=== PATIENT | female | born 1955 | race Caucasian/White ===

== ENCOUNTER 2020-01-31 16:14 | Outpatient (CLI) | payer OTHER, SELFPAY | END 2020-01-31 16:15 | disposition home or self-care (01) | LOC: ANHLAB 16:17 | PROVIDERS: PCP Family Medicine; Visit Provider Urology | DX: Z01.812 Encounter for preprocedural laboratory examination (principal) | CPT/HCPCS: 87086 ==

== ENCOUNTER 2020-02-01 00:27 | Outpatient (CLI) | payer OTHER, SELFPAY ==
[2020-02-01 18:40] LABS: SARS-CoV-2 RNA PCR Negative
== END 2020-02-01 00:28 | disposition home or self-care (01) ==
LOC: ANHCOVIDDT 00:27
PROVIDERS: PCP Family Medicine; Visit Provider Urology
DX: Z01.818 Encounter for other preprocedural examination (principal); Z11.59 Encounter for screening for other viral diseases
CPT/HCPCS: 87635; C9803; U0003

== ENCOUNTER 2020-02-04 01:19 | Day surgery (SDC) | payer OTHER, SELFPAY ==
[2020-01-28 08:54] VITALS: BMI 28.0
[2020-02-04] VITALS (8 sets, daily range): BP systolic 113–134; BP diastolic 55–73; PULSE 58–79; RESP 12–18; TEMP 36.1–36.2; O2SAT 100
[2020-02-04] MEDS: LACTATED RINGERS 1,000 ML 30 ML IV CONT ×2 (06:40→08:19)
--- NOTE | 2020-02-04 06:52 | P.PNAN_ITS ---
Anes - Initial Pre Proc Eval Procedure: Operation Date: 02/04/20 07:30 Proposed Procedures p Cystocele Repair - Bryson Contreras MD Date/Time: 02/04/20 06:52 Surgeon: Bryson Contreras MD Pre Op Diagnosis: Cystocele Patient Data Age: 64 Gender: F Height: 1.75 m Weight: 87.45 kg Last Vital Signs Temp 36.2 C L 02/04/20 06:25 Pulse 79 02/04/20 06:25 Resp 18 02/04/20 06:25 BP 134/64 02/04/20 06:25 Pulse Ox 100 02/04/20 06:25 Allergies Allergy/AdvReac Type Severity Reaction Status Date / Time morphine AdvReac Unknown Nausea and Verified 02/04/20 06:50 Vomiting Home Medications Medication Instructions Recorded Confirmed Type No Home Medications 01/28/20 02/04/20 History Patient hx anesthesia problems: post op nausea/vomiting Family hx anesthesia problems: none [facility] Past Medical History Medical History (Updated 02/04/20 @ 06:52 by Sina Reich MD) Arthritis Family History Family History (Updated 05/12/14 @ 07:13 by DOCTOR UNKNOWN) Father Hypertension Family history of coronary artery disease Family history of congestive heart failure Other Family history of pancreatic cancer Social History Social History Smoking status: Never smoker Second hand tobacco smoke exposure: No Alcohol intake: current Anes - Eval Final PreProcedure Day of Procedure 02/04/20 06:52 Patient weight: overweight Heart: regular rate and rhythm Lungs: clear to auscultation and normal air movement Airway: Mallampati scale class II Neurological: alert and oriented Last oral intake: >/= 8 hours ASA classification: II Emergent: no Anesthetic plan: proceed Anesthesia type and monitoring: general LMA Informed Consent: The patient's anesthetic plan and its attendant risks and benefits were discussed with the patient/family/POA. Questions were solicited and answers provided to the satisfaction of the patient/family/POA.
--- NOTE | 2020-02-04 07:29 | WPDHPUPDATE1 ---
History and Physical Update Update Date/Time: 02/04/20 07:29 History and Physical has been reviewed, including an updated exam of the patient. There are NO changes in the patient's condition. Risks, benefits, and alternatives have been discussed and questions answered. Patient agrees to proceed with procedure.
[2020-02-04] MEDS: ceFAZolin 2 GM/D5W 50 ML 2 GM/50 ML BAG IVPB (07:33)
[2020-02-04] MEDS: BUPIVACAINE/EPINEPHRINE 0.25% 50 ML VIAL 10 ML INFILTRATE (07:59)
--- NOTE | 2020-02-04 08:17 | PM.PROC ---
Procedure Note - Detailed Date of procedure: 02/04/20 Pre-op diagnosis: Cystocele Cystocele Post-op diagnosis: same Procedure performed: Cystocele repair/anterior colporrhaphy Description of procedure: She understood the risks of bleeding, infection, damage to surrounding organs, dyspareunia, postoperative stress incontinence, and recurrence of prolapse. She agrees to proceed. She has correctly identified and informed consent was obtained and she was brought to the operating room. She was given general anesthesia. She was placed in the dorsal thigh position. She was prepped and draped in sterile fashion. Given appropriate perioperative antibiotics. A time-out was performed. I placed a Weaver catheter. I placed a [place] retractor. I infiltrated the subcutaneous tissues of the anterior vaginal wall with local mixed with injectable saline. I made a midline vaginal incision. I dissected out laterally dissecting the mucosa off the underlying fascial structures. I dissected towards the vaginal apex as well. I then performed a standard cystocele repair with plicating sutures of 0 Vicryl. This reduced the cystocele. I then trimmed excess vaginal mucosa. I closed the vaginal closed with a running 2 0 Vicryl suture. There was excellent hemostasis. I then performed cystoscopy. The bladder is examined. There is no surgical artifact or injury. Both ureteral orifices were seen to excrete clear yellow urine. At the conclusion she was awakened and transferred to the PACU in stable condition. Sponge count is correct x2. Implants: None Anesthesia: RIGOA Surgeon: Bryson Contreras MD Drains: No Packing: No Pathology: none sent Complications: No immediate complications Condition: stable Disposition: PACU
== END 2020-02-04 10:10 | disposition home or self-care (01) ==
PROVIDERS: PCP Family Medicine; Visit Provider Urology
PROC: (CPT 57240; principal; 2020-02-04 07:30)
DX: N81.10 Cystocele, unspecified (principal)
CPT/HCPCS: 57240; A9270; J0690; J2250; J2405; J2704; J3010; J7030; J7120

== ENCOUNTER 2020-10-18 14:23 | Outpatient (CLI) | payer MEDICARE, OTHER, SELFPAY ==
--- NOTE | ~2020-10-18 | XR_ITS ---
EXAMINATION: XR chest 2V DATE: 10/18/2020 16:01 INDICATION: Palpitations. TECHNIQUE: Frontal and lateral views of the chest were obtained. COMPARISON: Chest 2 views 03/20/2012 FINDINGS: There is mild atelectasis at left lung base. No pleural effusion or pneumothorax. The heart size is normal. Surgical clips in the right upper quadrant are likely from cholecystectomy. IMPRESSION: 1. Mild atelectasis at left lung base. Reviewed, dictated and finalized at location A. ETIC INSTRUCTOR
--- NOTE | 2020-10-18 14:50 | ECG_ITS ---
Measurements Intervals [place] Rate: 73 P: 62 CA: 182 QRS: 50 QRSD: 89 T: 57 QT: 369 QTc: 407 Interpretive Statements SINUS RHYTHM CANNOT RULE OUT SEPTAL INFARCT, AGE INDETERMINATE ABNORMAL ECG Electronically Signed On 10-18-2020 16:06:52 CODE CLERK by Jason Parra D.O.
[2020-10-18 14:59] LABS: Basophils Absolute Auto 0.1 K/mm3 (0.0-0.1); Basophils Percent Auto 0.8 % (0.2-1.2); Eosinophils Absolute Auto 0.3 K/mm3 (0-0.3); Hematocrit 39.1 % (37.0-47.0); Hemoglobin 12.4 g/dL (12.0-15.0); Immature Granulocyte Absolute 0.01 K/mm3 (0.00-0.031); Immature Granulocyte Percent A 0.1 % (0-0.5); Lymphocytes Absolute Auto 2.34 K/mm3 (0.9-3.2); Lymphocytes Percent Auto 27.6 % (18.3-44.2); Mean Corpuscular HGB Conc 31.7 g/dl (32-36); Mean Corpuscular Hemoglobin 27.7 pg (26-34); Mean Corpuscular Volume 87.3 fl (80-100); Mean Platelet Volume 9.1 fl (7.4-10.4); Monocytes Absolute Auto 0.7 K/mm3 (0.1-0.6); Monocytes Percent Auto 7.7 % (2.6-8.5); Neutrophils Absolute Auto 5.2 K/mm3 (1.3-6.7); Neutrophils Percent Auto 60.8 % (45.5-73.1); Platelet Count Result 331 k/mm3 (150-375); Red Blood Count 4.48 M/mm3 (4.2-5.4); Red Cell Distribution Width 13.1 % (11.5-14.5); White Blood Count 8.5 K/mm3 (4.5-10.0)
[2020-10-18 15:25] LABS: Anion Gap 2 mmol/L (8-16); Blood Urea Nitrogen 16 mg/dL (7-17); Calcium 9.5 mg/dL (8.4-10.2); Carbon Dioxide 34 mmol/L (22-30); Chloride 103 mmol/L (98-107); Estimated Glomerular Filt Rate > 60; Glucose 84 mg/dL (65-105); Potassium 4.4 mmol/L (3.4-5.0); Sodium 139 mmol/L (137-145)
--- NOTE | 2020-10-20 16:15 | WPDHOLTEREM ---
Holter/Event Monitor Holter/Event Monitor Date of procedure: 10/18/20 Procedure Type: 24 hour holter monitor Indications: Palpitations Conclusion: 1. 24 hour holter monitor on 10/18/20. 2. Underlying rhythm is sinus rhythm. HR range 56-111 bpm; average HR 77 bpm. 3. There are 46 premature supraventricular complexes, 2 supraventricular couplets and 1 supraventricular triplet. No supraventricular tachycardia. 4. There are 755 premature ventricular complexes. No ventricular tachycardia. 5. No sinoatrial or atrioventricular blocks. No significant pauses greater than 2 seconds. 6. Patient reports symptoms of palpitations, shortness of breath, and strong heart beat which demonstrate sinus rhythm, HR range 74-90 bpm and 3 isolated PVC's.
== END 2020-10-18 14:24 | disposition home or self-care (01) ==
PROVIDERS: PCP Family Medicine; Visit Provider Nurse Practitioner Family
DX: R00.2 Palpitations (principal); R06.02 Shortness of breath; R25.2 Cramp and spasm; R94.31 Abnormal electrocardiogram [ECG] [EKG]
CPT/HCPCS: 36415; 71046; 80048; 82607; 83735; 84443; 85025; 93005; 93225; 93226

== ENCOUNTER 2020-11-16 07:42 | Outpatient (CLI) | payer MEDICARE, OTHER, SELFPAY ==
--- NOTE | 2020-11-16 07:46 | EST_ITS ---
Patient Info Name: Bonita Chin Age: 65 years : 1955 Gender: Female Ht: 69 in Wt: 190 lbs BSA: 2.07 m2 Exam Date: 11/16/2020 8:58 AM Exam Location: [facility] Stress Patient Status: Outpatient Admit Date: 11/16/2020 Staff Ordering Physician: Yvette Waterman NP Attending Provider: Yvette Waterman NP Exercise Technologist: Floridalma Frausto RDCS Exercise Physician: Katie Shah MD Exam Type: CA stress test treadmill Study Info A treadmill exercise stress test was performed. Summary 1. Abnormal exercise stress test suggestive of ischemia. 2. Hypertensive blood pressure response. Recommendations * Recommend cardiac catheterization to rule out CAD. Protocol: [facility] Stress ECG Details Stage: REST Duration (min): 2 min : 0 sec Speed (mph): 0.0 Grade (%): 0 HR (bpm): 66 SBP (mmHg): 145 DBP (mmHg): 83 METS: --- Stage: REST Duration (min): 7 min : 59 sec Speed (mph): 0.0 Grade (%): 0 HR (bpm): 72 SBP (mmHg): 145 DBP (mmHg): 83 METS: --- Stage: STAGE 1 Duration (min): 1 min : 0 sec Speed (mph): 1.7 Grade (%): 10 HR (bpm): 101 SBP (mmHg): 145 DBP (mmHg): 83 METS: --- Stage: STAGE 1 Duration (min): 2 min : 0 sec Speed (mph): 1.7 Grade (%): 10 HR (bpm): 112 SBP (mmHg): 145 DBP (mmHg): 83 METS: --- Stage: STAGE 1 Duration (min): 3 min : 0 sec Speed (mph): 1.7 Grade (%): 10 HR (bpm): 119 SBP (mmHg): 209 DBP (mmHg): 71 METS: --- Stage: STAGE 2 Duration (min): 1 min : 0 sec Speed (mph): 2.5 Grade (%): 12 HR (bpm): 133 SBP (mmHg): 209 DBP (mmHg): 71 METS: --- Stage: STAGE 2 Duration (min): 2 min : 0 sec Speed (mph): 2.5 Grade (%): 12 HR (bpm): 144 SBP (mmHg): 218 DBP (mmHg): 79 METS: --- Stage: STAGE 2 Duration (min): 3 min : 0 sec Speed (mph): 2.5 Grade (%): 12 HR (bpm): 148 SBP (mmHg): 218 DBP (mmHg): 79 METS: --- Stage: STAGE 3 Duration (min): 1 min : 0 sec Speed (mph): 3.4 Grade (%): 14 HR (bpm): 158 SBP (mmHg): 218 DBP (mmHg): 82 METS: --- Stage: STAGE 3 Duration (min): 1 min : 20 sec Speed (mph): 3.4 Grade (%): 14 HR (bpm): 160 SBP (mmHg): 218 DBP (mmHg): 82 METS: --- Stage: RECOVERY Duration (min): 0 min : 39 sec Speed (mph): 0.0 Grade (%): 0 HR (bpm): 153 SBP (mmHg): 218 DBP (mmHg): 82 METS: --- Stage: RECOVERY Duration (min): 1 min : 39 sec Speed (mph): 0.0 Grade (%): 0 HR (bpm): 130 SBP (mmHg): 218 DBP (mmHg): 82 METS: --- Stage: RECOVERY Duration (min): 2 min : 39 sec Speed (mph): 0.0 Grade (%): 0 HR (bpm): 116 SBP (mmHg): 218 DBP (mmHg): 82 METS: --- Stage: RECOVERY Duration (min): 3 min : 39 sec Speed
--- NOTE | 2020-11-16 07:46 | ECHO_ITS ---
Patient Info Name: Bonita Chin Age: 65 years : 1955 Gender: Female Ht: 69 in Wt: 190 lbs BSA: 2.07 m2 HR: 74 bpm BP: 137 / 71 mmHg Heart Rhythm: Sinus Rhythm Exam Date: 11/16/2020 8:06 AM Exam Location: [facility] Patient Status: Outpatient Admit Date: 11/16/2020 Staff Ordering Physician: Yvette Waterman NP Corporate Travel Counselor: Grace Lilly RDCS Attending Provider: Yvette Waterman NP Referring Physician: Guevara ECHEVARRIA; Exam Type: CA echo doppler color flow Study Info Indications R06.02 - Shortness of breath R00.2 - Palpitations R94.31 - Abnormal electrocardiogram ECG EKG Complete two-dimensional, color flow and Doppler transthoracic echocardiogram is performed. Summary 1. Complete two-dimensional, color flow and Doppler transthoracic echocardiogram is performed. 2. Left ventricular systolic function is normal, estimated at 60-65%. 3. There is mildly increased left ventricular wall thickness. 4. The left ventricular diastolic function is grade I diastolic dysfunction. 5. There is mild aortic valve sclerosis. 6. There is trace aortic valve regurgitation. 7. There is trace mitral valve regurgitation. 8. There is mild tricuspid valve regurgitation. 9. No pulmonary hypertension, estimated pulmonary arterial systolic pressure is 27 mmHg. Left Ventricle Left ventricular chamber dimension is normal. Left ventricular systolic function is normal, estimated at 60-65%. There is mildly increased left ventricular wall thickness. Left ventricular septal wall motion is normal. The left ventricular diastolic function is grade I diastolic dysfunction. Right Ventricle Right ventricular chamber dimension is normal. Right ventricular systolic function is normal. Left Atria Left atrial chamber dimension is normal. Right Atria Right atrial chamber dimension is normal. Atrial Septum Intact interatrial septum visualized by color flow imaging. Aortic Valve The aortic valve is trileaflet. There is mild aortic valve sclerosis. There is no aortic valve stenosis. There is trace aortic valve regurgitation. Pulmonic Valve The pulmonic valve is normal. There is no pulmonic valve stenosis. There is mild pulmonic regurgitation. Mitral Valve The mitral valve has normal leaflets. There is no mitral valve stenosis. There is trace mitral valve regurgitation. Tricuspid Valve The tricuspid valve leaflets are normal. There is no significant tricuspid valve stenosis. There is mild tricuspid valve regurgitation. No pulmonary hypertension, estimated pulmonary arterial systolic pressure is 27 mmHg. Pericardium/Pleural The pericardium appears normal. There is no pericardial effusion. Inferior Vena Cava Normal inferior vena cava with <50% collapse upon inspiration consistent with elevated right atrial pressure, 10 mmHg. Aorta The aortic root size at the sinus of Valsalva is normal. The prox ascending aorta size is normal. Left Ventricular Outflow Tract Name Value Normal LVOT 2D LVOT Diameter 2.0 cm LVOT Doppler LVOT Peak Velocity 109 cm/s
== END 2020-11-16 07:43 | disposition home or self-care (01) ==
PROVIDERS: PCP Family Medicine; Visit Provider Nurse Practitioner Family
DX: R00.2 Palpitations (principal); R94.31 Abnormal electrocardiogram [ECG] [EKG]; R06.02 Shortness of breath
CPT/HCPCS: 93017; 93306

== ENCOUNTER → 2020-11-20 00:25 | Outpatient (CLI) | payer MEDICARE, OTHER, SELFPAY ==
[2020-11-20 18:03] LABS: SARS-CoV-2 RNA PCR Negative
== END ==
PROVIDERS: PCP Family Medicine; Visit Provider Internal Medicine Cardiovascular Disease
DX: Z01.812 Encounter for preprocedural laboratory examination (principal); Z20.822 Contact with and (suspected) exposure to COVID-19
CPT/HCPCS: C9803; U0003; U0005

== ENCOUNTER 2020-11-23 01:23 | Day surgery (SDC) | payer MEDICARE, OTHER, SELFPAY ==
[2020-11-22 13:57] VITALS: BMI 28.0
[2020-11-23] VITALS (8 sets, daily range): BP systolic 122–139; BP diastolic 60–81; PULSE 60–80; RESP 10–19; TEMP 37.1; O2SAT 98–100; BMI 28.7
[2020-11-23 10:59] LABS: Basophils Absolute Auto 0.1 K/mm3 (0.0-0.1); Basophils Percent Auto 0.9 % (0.2-1.2); Eosinophils Absolute Auto 0.2 K/mm3 (0-0.3); Eosinophils Percent Auto 2.5 % (0-4.4); Hematocrit 41.8 % (37.0-47.0); Hemoglobin 13.6 g/dL (12.0-15.0); Immature Granulocyte Absolute 0.02 K/mm3 (0.00-0.031); Immature Granulocyte Percent A 0.2 % (0-0.5); Lymphocytes Absolute Auto 1.72 K/mm3 (0.9-3.2); Lymphocytes Percent Auto 21.3 % (18.3-44.2); Mean Corpuscular HGB Conc 32.5 g/dl (32-36); Mean Corpuscular Hemoglobin 27.8 pg (26-34); Mean Corpuscular Volume 85.5 fl (80-100); Mean Platelet Volume 9.4 fl (7.4-10.4); Monocytes Absolute Auto 0.5 K/mm3 (0.1-0.6); Monocytes Percent Auto 5.9 % (2.6-8.5); Neutrophils Absolute Auto 5.6 K/mm3 (1.3-6.7); Neutrophils Percent Auto 69.2 % (45.5-73.1); Platelet Count Result 329 k/mm3 (150-375); Red Blood Count 4.89 M/mm3 (4.2-5.4); Red Cell Distribution Width 13.2 % (11.5-14.5); White Blood Count 8.1 K/mm3 (4.5-10.0)
[2020-11-23 11:10] LABS: INR 0.9
[2020-11-23 11:13] LABS: Anion Gap 7 mmol/L (8-16); Blood Urea Nitrogen 14 mg/dL (7-17); Calcium 9.4 mg/dL (8.4-10.2); Carbon Dioxide 28 mmol/L (22-30); Chloride 104 mmol/L (98-107); Estimated CRCL calculation 82 ml/min; Estimated Glomerular Filt Rate > 60; Glucose 87 mg/dL (65-105); Potassium 4.1 mmol/L (3.4-5.0); Sodium 139 mmol/L (137-145)
--- NOTE | 2020-11-23 13:11 | PM.CNCAR ---
Assessment and Plan Assessment and plan (1) Abnormal stress test: Code(s): R94.39 - Abnormal result of other cardiovascular function study Status: Acute Assessment and Plan: patient underwent stress testing was markedly abnormal with diffuse ST depressions throughout stress test. For that reason we decided to proceed with cardiac catheterization. (2) Palpitations: Code(s): R00.2 - Palpitations Status: Acute Assessment and Plan: Reported that she has frequent PVCs and therefore the stress test was ordered as well. History of Present Illness History of Present Illness Consult date/time: date of rowunrz42/11/21 13:11 Requesting physician: Frankie Garnica MD Consult reason: chest pain Reason For Visit: abnormal stress test Narrative: this 65-year-old female with past medical history of hypothyroidism who apparently was referred for stress testing. It seems about few weeks ago she had an episode of this discomfort in her chest and some intermittent palpitations. She underwent a monitor that shows frequent PVCs. Then her echocardiogram was unremarkable. I saw this patient back at [facility] and I supervised her stress testing and at that time his stress test was markedly abnormal with diffuse ST depressions during exertion. During the stress test she had hypertensive blood pressure response and did not have any chest pain or shortness of breath. After the stress test she denied any chest pain or shortness of breath, dizziness or syncope. But due to this abnormal stress test I saw and evaluated the patient and recommended cardiac catheterization and therefore the patient is now here to undergo the cardiac catheterization. Review of Systems Constitutional: Constitutional: Denies chills, Denies fever(s) and Denies poor appetite Eyes: Eyes: Denies eye discharge, Denies loss of vision, Denies eye pain and Denies photophobia ENT: Denies dizziness, Denies epistaxis, Denies nasal congestion and Denies sore throat Cardiovascular: Cardiovascular: Denies chest pain, Denies syncope, Denies pedal edema, Denies leg edema, Denies palpitations, Denies dyspnea, Denies dyspnea on exertion and Denies orthopnea Respiratory: Respiratory: Denies cough, Denies dyspnea, Denies dyspnea on exertion and Denies wheezing Gastrointestinal: Gastrointestinal: Denies abdominal pain, Denies diarrhea, Denies nausea and Denies vomiting Genitourinary: Genitourinary: Denies hematuria, Denies genital lesions and Denies dysuria Musculoskeletal: Musculoskeletal: Denies arthralgias, Denies joint swelling and Denies numbness Integumentary/Breasts: Skin/Breast: Denies pruritus and Denies rash Neurologic: Denies dizziness, Denies syncope, Denies loss of vision and Denies numbness Psychiatric: Psychiatric: Denies anxiety and Denies depression Endocrine: Endocrine: Denies cold intolerance, Denies heat intolerance and Denies palpitations Hematologic/Lymphatic: Hematologic/Lymphatic: Denies easy bleeding and Denies easy bruising Allergic/Immunologic: Allergic/Immunologic: Denies urticaria and Denies wheezing PMFSH Past Medical History Medical History Abnormal thyroid function test Acute sinusitis, unspecified Arthralgia of temporomandibular joint, unspecified side Arthritis BMI 28.0-28.9,adult Body mass index [BMI] 29.0-29.9, adult (05/04/19) Body mass index [BMI]30.0-30.9, adult (05/01/17) Deep venous thrombosis of right peroneal vein Dietary counseling and surveillance (07/16/18) Elevated blood pressure reading Encounter for follow-up examination after completed treatment for cancer Encounter for gynecological examination (general) (routine) without abnormal findings Encounter for other preprocedural examination Encounter for screening for malignant neoplasm of cervix Encounter for screening for malignant neoplasm of colon (05/01/17) Pelvic relaxation Postmenopausa
--- NOTE | 2020-11-23 13:17 | P.PCNCC_ITS ---
Cardiac Cath Procedure Note Date of procedure:: 11/23/20 Performing physician:: Katie Shah MD Indication:: Abnormal stress test Brief clinical history:: 65-year-old female was evaluated for an episode of chest pain and palpitations and heart monitor showed frequent PVCs. She underwent exercise EKG stress test that was markedly abnormal with diffuse ST depressions. Procedure Procedure performed:: 1-Moderate sedation that started at 1:23 p.m.and ended at 1:39 p.m.using2 mg of Versed and 50mcg fentanyl. The registered nurse was marissa newell. 2-Selective left and right coronary angiogram. 3-Left heart catheterization with measurement of LVEDP and measurement of gradient across aortic valve. 4-Right common femoral arterial angiogram. 5-Deployment of 6 [place] Angio-Seal. Sedation/Medication given:: Moderate sedation. Access site:: Right common femoral artery. Estimated blood loss:: 10cc Procedure note:: After informed consent patient was brought in to laborer cook house with the was draped and prepped in usual manner. Moderate sedation was given and the right groin was infiltrated using 1% lidocaine. Five [place] sheath was obtained using micropuncture needle and the modified Seldinger technique. Selective left coronary angiogram was done using JL4 catheter with the tip of the catheter placed in the left main coronary artery. Selective right coronary angiogram was done using JR4 catheter with the tip of the catheter placed to the right coronary artery. After that 5 [place] pigtail catheter was advanced across the aortic valve into the left ventricle with measurement of LVEDP and measurement of gradient across aortic valve. Right common femoral arterial angiogram was done. Findings:: 1- left coronary artery is a large artery that divides into large LAD, large circumflex artery. Left main is free of disease. 2- left anterior descending artery is a large artery that runs and wraps around the apex. has minimal irregularities proximally and in the mid segment. Large diagonal 1 branch that has minimal irregularities. 3- leftcircumflex artery is a large artery And has minimal irregularities proximally and distally gives rise to large OM that has free of disease. 4- right coronary artery is Large artery and free of disease. This dominant artery. 5- LVEDP was 12 mm Hg and no gradient across aortic valve. 6- opening arterial pressure was 160/80 and closing pressure was 130/80 7- right femoral artery angiogram shows no significant disease in the right common femoral artery. Conclusion:: minimal coronary irregularities. false-positive stress test Assessment and Plan Additional Plan continue aggressive risk factor modification for CAD
--- NOTE | 2020-11-23 13:17 | WPDMODSED ---
Moderate Sedation Note-Pt Data Patient Data Allergies Allergy/AdvReac Type Severity Reaction Status Date / Time morphine AdvReac Unknown Nausea and Verified 11/22/20 13:55 Vomiting Home Medications Medication Instructions Recorded Confirmed Type levothyroxine 25 mcg tablet 25 mcg PO DAILY #30 tablet 11/14/20 11/22/20 Rx aspirin [Adult Aspirin EC Low 81 mg PO DAILY 11/22/20 11/22/20 History Strength] Current Medications: Active Medications Sodium Chloride (Normal Saline Iv) 500 mls @ 100 mls/hr IV CONT .Q5H LOGAN Sedation/Anesthesia: No previous sedation/anesthesia problems (including family history). [facility] Past Medical History Medical History Abnormal thyroid function test Acute sinusitis, unspecified Arthralgia of temporomandibular joint, unspecified side Arthritis BMI 28.0-28.9,adult Body mass index [BMI] 29.0-29.9, adult (05/04/19) Body mass index [BMI]30.0-30.9, adult (05/01/17) Deep venous thrombosis of right peroneal vein Dietary counseling and surveillance (07/16/18) Elevated blood pressure reading Encounter for follow-up examination after completed treatment for cancer Encounter for gynecological examination (general) (routine) without abnormal findings Encounter for other preprocedural examination Encounter for screening for malignant neoplasm of cervix Encounter for screening for malignant neoplasm of colon (05/01/17) Pelvic relaxation Postmenopausal Surgical History Surgical History H/O bladder repair surgery Family History Family History Father Hypertension Family history of coronary artery disease Family history of congestive heart failure Mother Carcinoma of colon Sibling Acute myocardial infarction Sibling , brain cancer No problems noted. Sibling No problems noted. 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 Gender identity (if verbalized by the patient): Female Mod Sed Physical Exam Physical Exam Pre Procedural Exam: Normal: Appearance, Eyes, Ears, Nose, Neck, Throat, Airway, Lungs, Heart Size, Heart Rate, Heart Rhythm, Neuro Exam, Abdomen, Liver, Kidneys, Spleen, Breasts, Genitalia, Extremities and Skin Hours since solid foods: 8 Hours since liquid intake: 8 Internal Medicine - PN: Obj Da Vital Signs Vital Signs: Vital Signs - 24 hr 11/23/20 11:11 Temperature 37.1 C Pulse Rate 69 Respiratory Rate 10 L Blood Pressure 122/81 Pulse Oximetry 100 Meds/Results Medications: Active Medications Generic Name Dose Route Start Last Admin Trade Name Freq PRN Reason Stop Dose Admin Sodium Chloride 500 mls @ 100 mls/hr 11/23/20 09:00 Normal Saline Iv IV CONT .Q5H LOGAN Labs CBC & Chem 7: 11/23/20 10:47 11/23/20 10:47 Labs: Laboratory Results - last 24 hr 11/23/20 11/23/20 11/23/20 10:47 10:47 10:47 WBC 8.1 RBC 4.89 Hgb 13.6 Hct 41.8 MCV 85.5 MCH 27.8 MCHC 32.5 RDW 13.2 Plt Count 329 MPV 9.4 Immature Gran % (Auto) 0.2 Neut % (Auto) 69.2 Lymph % (Auto) 21.3 [place] % (Auto) 5.9 Eos % (Auto) 2.5 Baso % (Auto) 0.9 Lymph # (Auto) 1.72 [place] # (Auto) 0.5 Eos # (Auto) 0.2 Baso # (Auto) 0.1 Abs Immat Gran (auto) 0.02 Absolute Neuts (auto) 5.6 Absolute Nucleated RBC 0.0 Nucleated RBC % 0.0 PT 13.0 INR 0.9 Sodium 139 Potassium 4.1 Chloride 104 Carbon Dioxide 28 Anion Gap 7 L BUN 14 Creatinine
== END 2020-11-23 17:30 | disposition home or self-care (01) ==
PROVIDERS: PCP Family Medicine; Visit Provider Internal Medicine Cardiovascular Disease
PROC: 4A023N7 Measurement of Cardiac Sampling and Pressure, Left Heart, Percutaneous Approach (ICD-10-PCS; CPT 93452; principal; 2020-11-23 12:00)
DX: R94.39 Abnormal result of other cardiovascular function study (principal); R00.2 Palpitations; R07.9 Chest pain, unspecified; E03.9 Hypothyroidism, unspecified; I49.3 Ventricular premature depolarization
CPT/HCPCS: 36415; 80048; 85025; 85610; 93458; A9270; C1760; C1887; C1894; G0269; J1644; J2250; J3010; J7040

== ENCOUNTER 2020-11-28 15:29 | Outpatient (CLI) | payer MEDICARE, OTHER, SELFPAY ==
[2020-11-28 17:09] LABS: Free T4 Free Thyroxine 1.01 ng/mL (0.78-2.19)
== END 2020-11-28 15:30 | disposition home or self-care (01) ==
LOC: ANHLAB 15:31
PROVIDERS: PCP Family Medicine; Visit Provider Nurse Practitioner Family
DX: E03.9 Hypothyroidism, unspecified (principal)
CPT/HCPCS: 36415; 84439; 84443

== ENCOUNTER 2021-01-19 15:33 | Outpatient (CLI) | payer MEDICARE, OTHER, SELFPAY ==
[2021-01-19 16:47] LABS: Free T4 Free Thyroxine 1.07 ng/mL (0.78-2.19)
== END 2021-01-19 15:34 | disposition home or self-care (01) ==
PROVIDERS: PCP Family Medicine; Visit Provider Nurse Practitioner Family
DX: E03.9 Hypothyroidism, unspecified (principal)
CPT/HCPCS: 36415; 84439; 84443

== ENCOUNTER → 2021-10-13 08:47 | Outpatient (CLI) | payer MEDICARE, OTHER, SELFPAY ==
--- NOTE | ~2021-10-13 | MR_ITS ---
EXAMINATION: MR shoulder LT wo con DATE: 10/13/2021 09:33 INDICATION: Lateral left shoulder pain. TECHNIQUE: Magnetic resonance imaging (MRI) of the left shoulder was performed without intravenous co ntrast. Sequences included axial PD-weighted FS FSE, coronal oblique PD-weighted FS FSE and T2-weight ed FS FSE, and sagittal oblique T2-weighted FS FSE and T1-weighted FSE. COMPARISON: Left shoulder radiographs 08/23/2021 FINDINGS: Coracoacromial arch: The acromion undersurface is curved in morphology (type II). There is severe acromioclavicular joint osteoarthritis including inferiorly directed osteophytes. There is mild subacromial/subdeltoid bursit is. Rotator cuff: There is severe tendinopathy of supraspinatus and moderate tendinopathy of infraspinatus. There is a small interstitial tear of posterior supraspinatus tendon. Teres minor tendon is normal. There is mod erate subscapularis tendinopathy. There is no asymmetric fatty atrophy of the rotator cuff muscle bel lies. Biceps tendon and glenoid labrum: Biceps tendon is in bicipital groove. Intra-articular biceps tendon is normal. The glenoid labrum is normal. Fluid: There is no glenohumeral joint effusion. Bones/cartilage: There is cartilage surface irregularity of glenoid. Humeral head cartilage is normal. IMPRESSION: 1. Severe rotator cuff tendinopathy with small interstitial tear of posterior supraspinatus tendon. 2. Mild glenoid chondrosis. 3. Severe acromioclavicular joint osteoarthritis. 4. Mild subacromial/subdeltoid bursitis. Reviewed, dictated and finalized at location A. MANAGER IMPRESSION: 1. Severe rotator cuff tendinopathy with small interstitial tear of posterior s upraspinatus tendon. 2. Mild glenoid chondrosis. 3. Severe acromioclavicular joint osteoarthritis. 4. Mild subacromial/subdeltoid bursitis.
== END ==
PROVIDERS: Visit Provider Orthopaedic Surgery
DX: M19.012 Primary osteoarthritis, left shoulder (principal); M75.52 Bursitis of left shoulder
CPT/HCPCS: 73221

== ENCOUNTER 2022-09-23 13:11 | Outpatient (CLI) | payer MEDICARE, OTHER, SELFPAY ==
--- NOTE | ~2022-09-23 | XR_ITS ---
EXAMINATION: XR shoulder LT min 2V DATE: 09/23/2022 13:35 INDICATION: Impingement syndrome of left shoulder. TECHNIQUE: 4 views of left shoulder were obtained. COMPARISON: Left shoulder radiographs 08/23/2021 FINDINGS: Bone alignment is normal. No fracture. The glenohumeral joint is normal. There is mild acro mioclavicular joint osteoarthritis. There is mild atelectasis in left lower lung zone. IMPRESSION: 1. Mild osteoarthritis of acromioclavicular joint. Reviewed, dictated and finalized at location A. FORMER MACHINE OPERATOR
== END 2022-09-23 13:12 | disposition home or self-care (01) ==
PROVIDERS: PCP Family Medicine; Visit Provider Orthopaedic Surgery
DX: M75.42 Impingement syndrome of left shoulder (principal); M19.012 Primary osteoarthritis, left shoulder
CPT/HCPCS: 73030

== ENCOUNTER 2022-10-11 10:32 | Outpatient (CLI) | payer MEDICARE, OTHER, SELFPAY ==
--- NOTE | ~2022-10-11 | US_ITS ---
EXAMINATION: US thyroid DATE: 10/11/2022 11:14 INDICATION: Localized swelling, mass and lump at the neck TECHNIQUE: Multiple ultrasound images of the thyroid were obtained. COMPARISON: None. FINDINGS: The right thyroid lobe measures 4.0 x 2.0 x 1.8 cm. The left thyroid lobe measures 3.3 x 1.2 x 1.2 c m. There is heterogeneous echogenicity with coarsened echotexture and increased vascular flow through out the thyroid, right greater than left. No discrete nodules identified. IMPRESSION: 1. Heterogeneous thyroid with coarsened echotexture and increased vascularity, right greater than lef t, suggestive of thyroiditis. No discrete thyroid nodules. Reviewed, dictated and finalized at location B. OLEUM ENGINEER IMPRESSION: 1. Heterogeneous thyroid with coarsened echotexture and increased vascularity, right greater than left, suggestive of thyroiditis. No discrete thyroid nodules .
[2022-10-11 11:07] LABS: Hematocrit 41.4 % (37.0-47.0); Hemoglobin 13.3 g/dL (12.0-15.0); Mean Corpuscular HGB Conc 32.1 g/dl (32-36); Mean Corpuscular Hemoglobin 27.5 pg (26-34); Mean Corpuscular Volume 85.7 fl (80-100); Mean Platelet Volume 9.2 fl (7.4-10.4); Platelet Count Result 383 k/mm3 (150-375); Red Blood Count 4.83 M/mm3 (4.2-5.4); Red Cell Distribution Width 13.3 % (11.5-14.5); White Blood Count 9.5 K/mm3 (4.5-10.0)
[2022-10-11 11:18] LABS: Alanine Aminotransferase 19 U/L (6-35); Albumin Level 4.2 g/dL (3.5-5.1); Alkaline Phosphatase 91 U/L (38-126); Anion Gap 6 mmol/L (8-16); Aspartate Amino Transferase 24 U/L (14-36); Bilirubin,Total 0.7 mg/dL (0.2-1.3); Blood Urea Nitrogen 13 mg/dL (7-17); Calcium 9.6 mg/dL (8.4-10.2); Carbon Dioxide 30 mmol/L (22-30); Chloride 102 mmol/L (98-107); Estimated Glomerular Filt Rate > 60; Glucose 87 mg/dL (65-110); Potassium 4.4 mmol/L (3.4-5.0); Sodium 138 mmol/L (137-145)
[2022-10-11 13:03] LABS: Free T4 Free Thyroxine 1.15 ng/mL (0.78-2.19)
== END 2022-10-11 10:33 | disposition home or self-care (01) ==
PROVIDERS: PCP Family Medicine; Visit Provider Nurse Practitioner Family
DX: R22.1 Localized swelling, mass and lump, neck (principal); R00.2 Palpitations; R03.0 Elevated blood-pressure reading, without diagnosis of hypertension
CPT/HCPCS: 36415; 76536; 80053; 84439; 84443; 85027

== ENCOUNTER 2022-10-21 01:04 | Day surgery (SDC) | payer MEDICARE, OTHER, SELFPAY ==
[2022-10-10 14:35] VITALS: BMI 29.6
--- NOTE | 2022-10-10 14:54 | PC.NURSE ---
Report to the Outpatient Waiting Room, entrance under the green pavilion located off [facility], at time _11:30AM on date __10/21/22 . Planned Procedure Time: __1:30PM . Time changes happen often and if your time is changed the preop area will call you the afternoon before. - You and your visitor will be asked to self-screen and do not enter if you have any COVID symptoms. - Only one visitor is requested with a max of two and NO children visitors are allowed at this time. - The patient visitor may be requested to leave or wait in car when not with patient due to distancing restrictions. - A mask is optional within the hospital at this time. Patients may have clear liquids (water, carbonated beverages, clear teas, apple juice) until 3 hours prior to surgery with a maximum of 20 ounces. - No food from midnight until time of surgery Take the following medications with a SIP of water the morning of surgery: ____LEVOTHYROXINE DO NOT STOP ANY OF YOUR OTHER PRESCRIPTION MEDICATIONS PRIOR TO SURGERY ?EXCEPT THE FOLLOWING Medications to discontinue per physician __NONE Date to take last dose Please no make-up, nail frisian, hairspray, perfume, deodorant, or body powder the day of surgery. No jewelry (including any body piercings) or valuables the day of surgery, leave them at home. Please take a shower or bath the night before, or the morning of, surgery with an antibacterial soap. Wear comfortable, loose fitting clothing. Children are encouraged to wear pajamas. - Jewelry must be removed prior to entering the operating room. Rings and piercings that are not removed may be cut off. - The hospital will not accept responsibility for valuables. - Please leave all valuables, including medications, at home the day of surgery. If you are going home after surgery, a licensed regional tanker truck driver must drive you home. - NO public transportation without another adult if you receive anesthesia. - We recommend that an adult stay with you for 24 hours following discharge. - We also recommend that you do not drive, make important decision, drink alcoholic beverages, or take any drugs that were not prescribed by your health care provider for at least 24 hours after your discharge time. Follow any additional instructions given to you from your surgeon. If you or anyone in your household have experienced Covid symptoms in the past week, please notify your surgeon or the nurse liaison at the phone number below for possible testing. Telephone instructions given to __PATIENT__and asked if any additional questions and then verbalized understanding. Patient advised to call surgeon office or pre surgery nurse liaison [phone] if any additional questions.
[2022-10-21] VITALS (10 sets, daily range): BP systolic 137–169; BP diastolic 63–87; PULSE 70–84; RESP 12–18; TEMP 36.4–37.1; O2SAT 96–100
[2022-10-21] MEDS: LACTATED RINGERS 1,000 ML 30 ML IV CONT ×2 (10:50→14:24)
[2022-10-21] MEDS: ACETAMINOPHEN 500 MG TABLET 1000 MG PO (12:02)
[2022-10-21] MEDS: KETOROLAC 15 MG/ML VIAL (*BKC) IV PUSH (12:02)
--- NOTE | 2022-10-21 12:20 | SUR.PREOP ---
PT ABLE TO LIFE ARM ANTERIORLY TO SHOULDER HEIGHT, CAN LIFT ARM AWAY FROM HER SIDE APPROX 30 DEGREES.
--- NOTE | 2022-10-21 12:33 | WPDHPUPDATE1 ---
History and Physical Update Update Date/Time: 10/21/22 12:33 History and Physical has been reviewed, including an updated exam of the patient. There are NO changes in the patient's condition. Risks, benefits, and alternatives have been discussed and questions answered. Patient agrees to proceed with procedure.
--- NOTE | 2022-10-21 12:38 | WPDANESEPPF ---
Anes - Initial Pre Proc Eval Procedure: Operation Date: 10/21/22 13:30 Proposed Procedures p Left Rotator Cuff Repair, Distal Clavicle Excision - Jose Luis Asif MD Date/Time: 10/21/22 12:38 Surgeon: Jose Luis Asif MD Pre Op Diagnosis: left rotator cuff tear, AC arthritis Patient Data Age: 67 Gender: F Height: 1.75 m Weight: 92.4 kg Last Vital Signs Temp 36.4 C 10/21/22 11:53 Pulse 70 10/21/22 11:53 Resp 18 10/21/22 11:53 BP 137/63 10/21/22 11:53 Pulse Ox 98 10/21/22 11:53 O2 Del Method Room Air 10/21/22 11:53 Allergies Allergy/AdvReac Type Severity Reaction Status Date / Time morphine AdvReac Unknown Nausea and Verified 10/21/22 12:06 Vomiting Home Medications Medication Instructions Recorded Confirmed Type levothyroxine 75 mcg tablet 75 mcg PO DAILY #90 tabs 10/15/22 10/21/22 Rx (Synthroid) Patient hx anesthesia problems: other (slow to awaken) Family hx anesthesia problems: none Results Review: All pre-operative results and documents have been reviewed as part of the pre-operative evaluation. [facility] Past Medical History Medical History Abnormal thyroid function test Acute sinusitis, unspecified Arthralgia of temporomandibular joint, unspecified side Arthritis Arthritis of left acromioclavicular joint BMI 28.0-28.9,adult BMI 30.0-30.9,adult Body mass index [BMI] 29.0-29.9, adult (05/04/19) Body mass index [BMI]30.0-30.9, adult (05/01/17) Deep venous thrombosis of right peroneal vein Dietary counseling and surveillance (07/16/18) Elevated blood pressure reading Encounter for follow-up examination after completed treatment for cancer Encounter for gynecological examination (general) (routine) without abnormal findings Encounter for other preprocedural examination Encounter for screening for malignant neoplasm of cervix Encounter for screening for malignant neoplasm of colon (05/01/17) History of cystocele Left rotator cuff tear Pelvic relaxation Postmenopausal Surgical History Surgical History H/O bladder repair surgery H/O: hysterectomy History of ankle surgery History of appendectomy History of hip surgery History of knee surgery Family History Family History Father Hypertension Family history of coronary artery disease Family history of congestive heart failure Mother Carcinoma of colon Sibling Acute myocardial infarction Sibling , brain cancer No problems noted. Sibling No problems noted. Other Family history of pancreatic cancer Social History Social History Smoking packs per day: 1 Smoking cigarettes per day: 20.0 Years smoked: 15 Smoking pack-years: 15.00 Smoking status: Former smoker Tobacco type: cigarettes Second hand tobacco smoke exposure: No Smoking end date: 03/15/97 Alcohol intake: current Substance use: never Substance use type: does not use Lack of Transportation: No Lack of Food: Never True Current Housing: I Have Housing Concerned About Future Housing: No Difficulty Paying Gas/Electric Bills: No Difficulty Paying for Meds: No Currently Unemployed: No Education: High School Diploma/GED Difficulty w/ Childcare or Family Care: No Living arrangements: with family [facility] Occupation/Education: retired 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 Gender identity (if verbalized by the patient): Female Spiritual care concerns: No Anes - Eval Final PreProcedure Day of Procedure 10/21/22 12:38 Patient weight: overweight Heart: regular rate and rhythm Lungs: clear to auscultation Airway: Mallampati scale class II
--- NOTE | 2022-10-21 12:51 | WPDANESPNB ---
Anes - Peripheral Nerve Block Date/Time: 10/21/22 12:51 I have discussed with the patient/family/POA the placement of a peripheral nerve block for post-operative pain management, including associated risks, benefits, complications, and side effects. Alternative methods of post-operative analgesia were detailed. Questions were solicited and answers provided to the satisfaction of the patient/family/POA. Time-Out: A pre-procedural Time-Out was completed immediately before starting the procedure and confirmed: Patient Identification, Site, Procedure, Patient Position and the Availability of Requisite Equipment. Clinical Indications: Acute post-operative pain management requested by the operative surgeon. Nerve Block Insertion Note Anes-nerve block: interscalene left Patient position: other (sitting) Skin prep: chlorhexidine Needle: 22 gauge, stimulating, insulated echogenic needle. Needle length: 50 mm Technique: nerve stimulation lost at (mA) (0.3) and ultrasound Injectate: bupivacaine 0.5% with epi 5 mcg/ml (30ml no epi) and dexamethasone (mg) (4) Observations: tolerated well Complications: none Procedure start time:: 1240 Procedure end time:: 1246
[2022-10-21] MEDS: ceFAZolin 2 GM/D5W 50 ML 2 GM/50 ML BAG IVPB (13:03)
[2022-10-21] MEDS: BUPIVACAINE/EPINEPHRINE 0.5% 10 ML VIAL INFILTRATE (13:44)
--- NOTE | 2022-10-21 14:29 | W.PM.PROC2 ---
Procedure Note - Detailed Date of Procedure 10/21/22 Pre-op Diagnosis left rotator cuff tear, AC arthritis Post-op Diagnosis Same Procedure Performed left rotator cuff repair with DCE Surgeon Jose Luis Asif MD Hebrew Professor Ninoska Bedoya Anesthesia General and Regional Description of Procedure Patient was identified and proper site identified. In the preop holding area the anesthesia team performed a left upper extremity block. She was then taken to the operating room and transferred to the or table taking care to pad the torso and extremities. After general anesthetic induction and intubation, she was put in a semi beach chair position in the usual manner for a left shoulder procedure. Her head was secured taking care to neither rotate nor extend the head and neck. The left upper extremity was prepped and draped free in usual sterile fashion. The subcutaneous tissue in the area of the incision was injected with 10 cc of 0.25% Marcaine and epinephrine solution. An oblique anterior incision was made extending from the AC joint distally in line with the fibers of the deltoid. Subcutaneous tissue was sharply dissected down to the deltoid fascia. The deltoid was dissected off the anterior portion of the acromion in the distal end of the clavicle. A 2 cm split was made at the junction between the anterior and middle thirds of the deltoid. Using the microsagittal saw the last 8 mm of clavicle removed. The saw was also used to perform the acromioplasty and then the undersurface of the acromion was rasped smooth. Thickened bursa was removed from the rotator cuff. There was a deficient area noted at the anterior-most portion of the supraspinatus. Tendon edges were freshened up. The tendon was repaired 2. Ethibond suture in a [id number] fashion giving a solid repair which was stable as the shoulder was taken through range motion. The wound was irrigated with sterile NaCl solution. The deltoid was repaired back to the acromion with 2. Ethibond suture passed through bone and the remainder of the deltoid repair carried out with 2. Vicryl. Subcutaneous tissue was reapproximated with 2. Strata fix and then tissue adhesive used for the skin. Sterile dressing was applied. There were no known intraoperative complications, and perioperative antibiotics were administered. Estimated Blood Loss -15.0 Drains No Packing No Pathology None sent Complications No immediate complications Condition Stable Disposition PACU [facility] Billing Surgery - Charge Forward: Surgery Billing ([id number]; [id number])
== END 2022-10-21 16:08 | disposition home or self-care (01) ==
PROVIDERS: PCP Family Medicine; Visit Provider Orthopaedic Surgery
PROC: (CPT 23420; principal; 2022-10-21 13:30)
DX: M75.102 Unspecified rotator cuff tear or rupture of left shoulder, not specified as traumatic (principal); M19.012 Primary osteoarthritis, left shoulder; G89.18 Other acute postprocedural pain; Z87.891 Personal history of nicotine dependence
CPT/HCPCS: 23412; 23120; 64415; A4565; A9270; J0690; J1100; J1885; J2250; J2405; J2704; J3010; J7120

== ENCOUNTER 2022-11-09 14:06 | Emergency (ER) | payer MEDICARE, OTHER, SELFPAY ==
--- NOTE | ~2022-11-09 | CT_ITS ---
EXAMINATION: CT abdomen pelvis w con DATE: 11/09/2022 15:50 INDICATION: LLQ pain TECHNIQUE: Computed tomography (CT) of the abdomen and pelvis was performed with 100 mL Omnipaque-350 intravenous contrast. Automated exposure control and iterative reconstruction technique were employe d. The dose-length product was 1339.22 mGy-cm. COMPARISON: None. FINDINGS: Lower thorax: Coronary artery calcification. Bibasilar atelectasis. Liver: Normal. Biliary/Gallbladder: Gallbladder is absent. No bile duct dilation. Pancreas: No mass or duct dilation. Spleen: Normal. Adrenals:No mass. Kidneys: No mass, stone, or hydronephrosis. GI tract: No small or large bowel dilation. Appendix not visualized. Moderate diverticulosis. Short s egment wall thickening and pericolonic inflammatory change in the proximal sigmoid colon, in the left lower quadrant. Mesentery/Peritoneum: No ascites, mass, or free air. Retroperitoneum: No mass. Atherosclerotic abdominal aortic and/or arterial calcifications. Pelvis: Pelvic organs are within normal limits. Soft Tissues: Soft tissues and body wall unremarkable. Bones: No acute osseous finding. IMPRESSION: Acute uncomplicated sigmoid diverticulitis. Reviewed, dictated and finalized at location K. ROLLER OPERATOR
[2022-11-09 14:18] VITALS: BP 153/72; PULSE 97; RESP 20; TEMP 36.1; O2SAT 100
[2022-11-09 14:48] LABS: Basophils Absolute Auto 0.1 K/mm3 (0.0-0.1); Basophils Percent Auto 0.8 % (0.2-1.2); Eosinophils Absolute Auto 0.3 K/mm3 (0-0.3); Eosinophils Percent Auto 2.5 % (0-4.4); Hematocrit 40.7 % (37.0-47.0); Hemoglobin 12.9 g/dL (12.0-15.0); Immature Granulocyte Absolute 0.06 K/mm3 (0.00-0.031); Immature Granulocyte Percent A 0.5 % (0-0.5); Lymphocytes Absolute Auto 1.93 K/mm3 (0.9-3.2); Lymphocytes Percent Auto 15.3 % (18.3-44.2); Mean Corpuscular HGB Conc 31.7 g/dl (32-36); Mean Corpuscular Hemoglobin 27.2 pg (26-34); Mean Corpuscular Volume 85.9 fl (80-100); Mean Platelet Volume 8.8 fl (7.4-10.4); Monocytes Absolute Auto 0.8 K/mm3 (0.1-0.6); Neutrophils Absolute Auto 9.4 K/mm3 (1.3-6.7); Neutrophils Percent Auto 74.9 % (45.5-73.1); Platelet Count Result 440 k/mm3 (150-375); Red Blood Count 4.74 M/mm3 (4.2-5.4); Red Cell Distribution Width 13.1 % (11.5-14.5); White Blood Count 12.6 K/mm3 (4.5-10.0)
[2022-11-09 14:55] LABS: Mucus Urine Rare /lpf; Squamous Epithelial Cell Urine Few /hpf (Few); WBC Urine 0-3 /hpf
[2022-11-09 14:56] LABS: Appearance Urine Clear (Clear); Bilirubin Urine Negative (Negative); Blood Urine 1+ (Negative); Color Urine Yellow (Yellow); Glucose Urine UA Negative (Negative); Ketones Urine 1+ mg/dL (Negative); Leukocyte Esterase Ur Trace LEU/UL (Negative); Nitrate Urine Negative (Negative); Protein Urine Negative (Negative); Specific Grav Ur 1.015 (1.001-1.035); Urobilinogen Urine 0.2 mg/dL (<2.0)
[2022-11-09 14:57] LABS: Add Urine Microscopic? YES
[2022-11-09 14:59] LABS: Alanine Aminotransferase 18 U/L (6-35); Albumin Level 4.6 g/dL (3.5-5.1); Alkaline Phosphatase 99 U/L (38-126); Anion Gap 5 mmol/L (8-16); Aspartate Amino Transferase 24 U/L (14-36); Bilirubin,Total 0.6 mg/dL (0.2-1.3); Blood Urea Nitrogen 10 mg/dL (7-17); Calcium 9.4 mg/dL (8.4-10.2); Carbon Dioxide 32 mmol/L (22-30); Chloride 97 mmol/L (98-107); Estimated CRCL calculation 71 ml/min; Estimated Glomerular Filt Rate > 60; Glucose 96 mg/dL (65-110); Lipase 116 U/L (23-300); Potassium 4.2 mmol/L (3.4-5.0); Sodium 134 mmol/L (137-145)
--- NOTE | 2022-11-09 16:44 | ED.GENADULT ---
HPI - General Adult General Chief complaint: Abdominal Pain Stated complaint: abdominal pain Time Seen by Provider: 11/09/22 14:47 History of Present Illness HPI narrative: Patient is a 67-year-old female who presents ER with left lower quadrant abdominal pain. Worsening over the last 4 days. She feels like she needs to defecate but cannot. She took some milk of magnesia which did not improve her discomfort. No fevers or chills or sweats. No history of diverticulitis. No urinary symptoms. Related Data Allergies Allergy/AdvReac Type Severity Reaction Status Date / Time morphine AdvReac Unknown Nausea and Verified 11/09/22 14:22 Vomiting Review of Systems Review of Systems: All systems reviewed & are unremarkable except as noted in HPI and below Constitutional: Constitutional: Denies chills, Denies fatigue and Denies fever(s) ENT: Denies nasal congestion and Denies sore throat Respiratory: Respiratory: Reports cough Gastrointestinal: Gastrointestinal: Reports abdominal pain, Reports bloating, Denies diarrhea, Denies nausea and Denies vomiting Genitourinary: Genitourinary: Denies nocturia, Denies dysuria and Denies flank pain PMFSH Past Medical History Medical History Abnormal thyroid function test Acute sinusitis, unspecified Arthralgia of temporomandibular joint, unspecified side Arthritis BMI 28.0-28.9,adult BMI 30.0-30.9,adult Body mass index [BMI] 29.0-29.9, adult (05/04/19) Body mass index [BMI]30.0-30.9, adult (05/01/17) Deep venous thrombosis of right peroneal vein Dietary counseling and surveillance (07/16/18) Elevated blood pressure reading Encounter for follow-up examination after completed treatment for cancer Encounter for gynecological examination (general) (routine) without abnormal findings Encounter for other preprocedural examination Encounter for screening for malignant neoplasm of cervix Encounter for screening for malignant neoplasm of colon (05/01/17) History of cystocele Pelvic relaxation Postmenopausal Surgical History Surgical History Arthritis of left acromioclavicular joint DCE (with rotator cuff repair) October 21, 2022 H/O bladder repair surgery H/O: hysterectomy History of ankle surgery History of appendectomy History of hip surgery History of knee surgery Left rotator cuff tear rotator Cuff Repair October 21, 2022 Family History Family History Father Hypertension Family history of coronary artery disease Family history of congestive heart failure Mother Carcinoma of colon Sibling Acute myocardial infarction Sibling , brain cancer No problems noted. Sibling No problems noted. Other Family history of pancreatic cancer Social History Social History Smoking packs per day: 1 Smoking cigarettes per day: 20.0 Years smoked: 15 Smoking pack-years: 15.00 Smoking status: Former smoker Tobacco type: cigarettes Second hand tobacco smoke exposure: No Smoking end date: 03/15/97 Alcohol intake: current Substance use: never Substance use type: does not use Lack of Transportation: No Lack of Food: Never True Current Housing: I Have Housing Concerned About Future Housing: No Difficulty Paying Gas/Electric Bills: No Difficulty Paying for Meds: No Currently Unemployed: No Education: High School Diploma/GED Difficulty w/ Childcare or Family Care: No Living arrangements: with family Additional living arrangements comments: [facility] 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 Gender identity (if verbalized by the patient): Female Spiritual care concerns: No Exam Narrative: GENERAL:
[2022-11-09 17:08] VITALS: BP 143/84; PULSE 93; RESP 20; O2SAT 100
== END 2022-11-09 17:09 | disposition home or self-care (01) ==
PROVIDERS: Physician Assistant; Emergency Provider Emergency Medicine; PCP Family Medicine
DX: K57.32 Diverticulitis of large intestine without perforation or abscess without bleeding (principal); Z90.710 Acquired absence of both cervix and uterus; Z86.718 Personal history of other venous thrombosis and embolism; Z87.891 Personal history of nicotine dependence
CPT/HCPCS: 36415; 74177; 80053; 81001; 83690; 85025; 99284; Q9967

== ENCOUNTER 2022-11-25 11:50 | Outpatient (CLI) | payer MEDICARE, OTHER, SELFPAY ==
[2022-11-25 18:28] LABS: Mean Platelet Volume 9.4 fl (7.4-10.4); Platelet Count Result 452 k/mm3 (150-375)
== END 2022-11-25 11:51 | disposition home or self-care (01) ==
LOC: ANHGOSHLAB 11:53
PROVIDERS: PCP Family Medicine; Visit Provider Nurse Practitioner Family
DX: R79.89 Other specified abnormal findings of blood chemistry (principal); R00.2 Palpitations; E03.9 Hypothyroidism, unspecified
CPT/HCPCS: 36415; 84436; 84443; 85049

== ENCOUNTER 2022-12-09 07:49 | Outpatient (CLI) | payer MEDICARE, OTHER, SELFPAY ==
--- NOTE | ~2022-12-09 | MM_ITS ---
EXAMINATION: MM screening [facility] BI w [facility] HISTORY: Screening TECHNIQUE: Craniocaudal and mediolateral oblique 3-D tomosynthesis images were obtained and synthetic 2-D images were generated. CAD analysis was submitted and interpreted. COMPARISON: Comparison to multiple prior studies sequentially, with oldest reviewed study dated 01/2014. BREAST PARENCHYMAL COMPOSITION: There are scattered areas of fibroglandular density. FINDINGS: There is no evidence of suspicious mass, calcification, or architectural distortion to sugg est malignancy in either breast. There has been no suspicious interval change. IMPRESSION: 1. No mammographic evidence of malignancy. 2. Recommend routine screening mammography in one year. BI-RADS Category 1: Negative Reviewed, dictated and finalized at location A.
--- NOTE | ~2022-12-09 | DEXA_ITS ---
Bone Density Report Name: YONI VEGA Age: 67 Sex: Female Ethnicity: White Date of : 1955 Indication: postmenopausal; screening for osteoporosis; inflammatory bowel disease; Referring Provider: BHAVNA JACOBSEN Study: Bone densitometry was performed. Exam Date: December 09, 2022 Accession number: [id number] Bone Density: Region BMD T-score Z-score Classification AP Spine(L1-L4) 0.840 -1.9 0.1 Osteopenia Femoral Neck (Left) 0.689 -1.4 0.2 Osteopenia Total Hip (Left) 0.862 -0.7 0.7 Normal Femoral Neck (Right) 0.648 -1.8 -0.2 Osteopenia Total Hip (Right) 0.826 -1.0 0.4 Normal Total Hip Mean 0.844 -0.9 0.6 Normal World Health Organization criteria for BMD impression classify patients as: Normal (T-score at or above -1.0), Osteopenia (T-score between -1.0 and -2.5), or Osteoporosis (T-score at or below -2.5). 10-year Fracture Risk(1): Major Osteoporotic Fracture 10% Hip Fracture 1.6% Reported Risk Factors: [place] (), Neck BMD=0.648, BMI=28.8 (1) FRAX(R) Version 3.08. Fracture probability calculated for an untreated patient. Fracture probability may be lower if the patient has received treatment. Clinical Information Provided by Patient: Has the following medical conditions: Inflammatory bowel diseases Patient maximum height was 69 Menopause Age: 50 No regular weight bearing exercise Drinks caffeinated beverages Onset of menses at age 14 Number of children 3 Impression: The patient has low bone mass, based on the Total Spine T-score. The patient has an estimated ten-year risk of hip fracture of 1.6% and an estimated ten-year risk of major fracture of 10%, based on the WHO FRAX algorithm. Discussion: BONE DENSITY IS LOW AT ONE OR MORE SKELETAL SITES. This patient's lowest T-score is low at one or more skeletal sites. It meets the World Health Organization's (WHO) criteria for ?low bone mass? (T-score between -1.0 and -2.5). The patient's 10-year risk of fracture as calculated by FRAX is less than the threshold where pharmacological therapy is recommended by the National Osteoporosis Foundation (NOF). However, all treatment decisions require clinical judgment and consideration of individual patient factors, including patient preferences, comorbidities, previous drug use, risk factors not captured in the FRAX model (e.g., frailty, falls, vitamin D deficiency, increased bone turnover, interval significant decline in bone density) and possible under or overestimation of fracture risk by FRAX. The patient should follow a healthful lifestyle (good nutrition with adequate calcium and vitamin D, and appropriate weight-bearing exercise). Follow-Up: Consider repeating this study in 2 to 3 years to reassess this patient's status, or sooner if there is some new clinical ind
== END 2022-12-09 07:50 | disposition home or self-care (01) ==
LOC: ANHIMG 07:51
PROVIDERS: PCP Family Medicine; Visit Provider Nurse Practitioner Family
DX: Z12.31 Encounter for screening mammogram for malignant neoplasm of breast (principal); Z78.0 Asymptomatic menopausal state; M85.88 Other specified disorders of bone density and structure, other site; M85.852 Other specified disorders of bone density and structure, left thigh; M85.851 Other specified disorders of bone density and structure, right thigh
CPT/HCPCS: 77063; 77067; 77080

== ENCOUNTER 2022-12-19 08:08 | Outpatient (CLI) | payer MEDICARE, OTHER, SELFPAY ==
--- NOTE | 2023-01-20 14:58 | WPDSLEEPSTUD ---
Sleep Study Date of Study: 12/19/22 Ordering Provider: Frankie Garnica MD Interpreting Physician: Lisy Blunt DO Sleep Study Type: Split Polysomnogram Height: 1.75 m Weight: 88.451 kg Body Mass Index: 28.8 Neck Circumference (inches): 15 Marion: 6 Reason for Sleep Study Witnessed apneas Sleep History The patient is a 67-year-old female with hypothyroidism, postmenopausal syndrome and history of tobacco use that had a sleep study ordered by her primary care for evaluation of sleep apnea. The patient occasionally awakens from sleep short of breath. She frequently awakens at night with heartburn, belching or cough. She frequently snores and is constantly loud enough that others complain. She occasionally has trouble sleeping when she has a cold. She occasionally wakes up gasping for air throughout the night. She frequently has breathing problems at night observed by herself or others. She denies sweating excessively at night. She occasionally has heart palpitations or irregular heartbeats during the night. He rarely falls asleep during the day but never while driving. She denies sleep paralysis and cataplexy. She denies having trouble at school or work due to sleepiness. She occasionally experiences vivid dreamlike scenes upon awakening or falling asleep. She denies feeling afraid of going to sleep. She occasionally has nightmares and occasionally remembers her dreams. She frequently has thoughts racing through her mind. She rarely feels sad or depressed. She denies having anxiety. She denies having muscular tension. She occasionally notices parts of her body jerk. She denies kicking during the night. She denies having crawling and aching feelings in her legs but occasionally has leg pain during the night. She denies grinding her teeth during sleep and denies awakening with morning jaw pain. She is rarely bothered by pain during the day and rarely awakened by pain during the night. She occasionally wakes up feeling stiff in the morning. She occasionally wakes up with sore or achy muscles. She frequently wakes up with pain in the neck, spine or other joints. She goes to bed at 10:00 p.m. on both weekdays and weekends. She is able to fall asleep immediately. She wakes up once throughout the night to urinate and it takes 20-30 minutes to fall back asleep. She wakes up at 7:30 a.m. on both weekdays and weekends. She typically gets at least 8 hours of sleep per night. She will stay in bed for 5 minutes after waking up in the morning. She currently lives with her . She does not consume any caffeinated beverages within 2 hours of bedtime. She does not engage in physical exercise before bedtime. She will watch television before falling asleep. He denies taking naps in the afternoon or the evening. She consumes 2 caffeinated beverages per day. She quit smoking cigarettes in 1996. She does consume alcoholic beverages. She denies recreational drug use. [facility] Past Medical History Medical History Abnormal thyroid function test Acute sinusitis, unspecified Arthralgia of temporomandibular joint, unspecified side Arthritis BMI 28.0-28.9,adult BMI 29.0-29.9,adult BMI 30.0-30.9,adult Body mass index [BMI] 29.0-29.9, adult (05/04/19) Body mass index [BMI]30.0-30.9, adult (05/01/17) Deep venous thrombosis of right peroneal vein Dietary counseling and surveillance (07/16/18) Diverticulitis of sigmoid colon Elevated blood pressure reading Encounter for follow-up examination after completed treatment for cancer Encounter for gynecological examination (general) (routine) without abnormal findings Encounter for other preprocedural examination Encounter for screening for malignant neoplasm of cervix Encounter for screening for malignant neoplasm of colon (05/01/17) History of cystocele Pelvic relaxation Postmenopausal Surgical History Surgical History (Revie
[2023-01-20 15:10] VITALS: BMI 28.8
== END 2022-12-20 06:52 | disposition home or self-care (01) ==
LOC: ANHCSM 08:09
PROVIDERS: PCP Physician Assistant Medical; Visit Provider Family Medicine
DX: G47.30 Sleep apnea, unspecified (principal); G47.33 Obstructive sleep apnea (adult) (pediatric)
CPT/HCPCS: 95811

== ENCOUNTER 2023-01-03 11:00 | Outpatient (RCR) | payer MEDICARE, OTHER, SELFPAY ==
[2022-10-23 08:58] VITALS: BP_SYST 30
--- NOTE | 2022-10-23 10:39 | PTOPEVAL1 ---
Assessment and note entered by Ayesha Amaya, PT, DPT Evaluation Information Assessment Status Evaluation Diagnosis L TRC repair Onset 10/21/22 Subjective Information Pt states so far her pain has been hard to control . She states icing has been hard as well just d/t the weight of the bag. Pt states she is newly retired and her goal would be to return to housework without limitations. She states she does all of the yard work, housework, and cooking. Reported Pain Level Pain Score 5: Self Report Assessment PT Clinical Summary Bonita presents to therapy today for her initial physical therapy evaluation following a L TRC repair on 10/21/22. Today she reports poorly controlled pain despite regular ice and use of her pain medication. Passive range today was limited to 80 deg of flexion, 30 deg of scaption, and 0 deg of ext rot, d/t pain. Skilled physical therapy services are indicated to progress through surgical protocol, to progress towards therapy goals, to increase ROM, to increase strength, to manage pain, and to promote unlimited functional mobility of her shoulder. Plan of Care Interventions Electrical Stimulation,Hot Pack/Cold Pack,Manual Therapy,Neuro Re-education,Patient/Caregiver Educati,Therapeutic Activities,Therapeutic Exercise PT Services Indicated Yes Treatment Frequency and 2x/wk for 5 wks Duration These treatments will address the objective and functional deficits as defined above. The patient will be advanced safely and appropriately in order for the patient to progress towards his/her prior level of function. Additional exercises will be introduced and as well as a comprehensive home exercise program upon discharge, if needed, ?to ensure carryover of functional gains achieved in the clinic. This treatment plan has been reviewed and agreement upon by the patient.
--- NOTE | 2022-11-11 08:49 | PCPTNOTE ---
Pt cancelled due to being hospitalized and ill, she cancelled her Wed. appt this week too.
[2022-11-27 11:20] VITALS: BP_SYST 115
--- NOTE | 2022-11-27 17:20 | PTOPPROG ---
Assessment and note entered by Ayesha Amaya, PT, DPT Evaluation Information Assessment Status Progress Diagnosis L TRC repair Onset 10/21/22 Subjective Information Pt states she thinks things are going pretty. Pt reports no pain with usual activities, she reports 60% improvement in overall symptoms. Assessment PT Clinical Summary Bonita presents to therapy today for her progress report following 8 visits of skilled therapy to treat her L RTC repair on 10/21/22. Today she demonstrates improved active ROM, currently 92 deg of flexion and 80 deg of abduction, and improved passive ROM, flexion to 135, and abduction to 110. She report well controlled pain. Continuation of skilled physical therapy services are indicated to continue progressing her strength, ROM, and overall function, as well as progress towards a return to baseline. Plan of Care Interventions Electrical Stimulation,Hot Pack/Cold Pack,Manual Therapy,Neuro Re-education,Patient/Caregiver Educati,Therapeutic Activities,Therapeutic Exercise PT Services Indicated Yes Treatment Frequency and 2x/wk for 5 wks Duration These treatments will address the objective and functional deficits as defined above. The patient will be advanced safely and appropriately in order for the patient to progress towards his/her prior level of function. Additional exercises will be introduced and as well as a comprehensive home exercise program upon discharge, if needed, ?to ensure carryover of functional gains achieved in the clinic. This treatment plan has been reviewed and agreement upon by the patient.
--- NOTE | 2023-01-03 11:44 | PTOPDC ---
Assessment and note entered by Ayesha Amaya, PT, DPT Evaluation Information Assessment Status Discharge Diagnosis L TRC repair Onset 10/21/22 Subjective Information Pt states she thinks she is doing well. She reports no pain in the last week and no functional limitations at this time. She reports 75% improvement in overall symptoms. She states her strength still needs to progress. She has returned to water aerobic at the [facility] and did not have any issues with her shoulder. Reported Pain Level Pain Score 0: Self Report Assessment PT Clinical Summary Bonita presents to therapy today for her progress report following 19 visits of skilled therapy to treat her L RTC repair on 10/21/22. Today she demonstrates active shoulder flexion and abduction to 145 deg, functional rotation is equal to her R shoulder, and L shoulder strength is grossly 4+/5 . She reports no functional limitations at this time and has met all of her therapy goals. She will be discharged at this time with instructions to continue her HEP upon discharge with a focus on continued strengthening. Plan of Care PT Services Indicated No
== END 2023-01-03 13:04 | disposition home or self-care (01) ==
LOC: ANHGOSHPT 11:00
PROVIDERS: PCP Family Medicine; Visit Provider Orthopaedic Surgery
DX: Z48.89 Encounter for other specified surgical aftercare (principal); E03.9 Hypothyroidism, unspecified; R00.2 Palpitations; Z98.890 Other specified postprocedural states
CPT/HCPCS: 36415; 84436; 84443; 85049; 97014; 97110; 97112; 97140; 97161; 97530; G0283

== ENCOUNTER 2023-01-31 00:53 | Day surgery (SDC) | payer MEDICARE, OTHER, SELFPAY ==
[2023-01-16 13:47] VITALS: BMI 28.8
--- NOTE | 2023-01-29 15:27 | PM.HPGS ---
History of Present Illness History of Present Illness Consent: Risks, benefits, and alternatives have been discussed and questions answered. Patient agrees to proceed with procedure. Chief complaint: Diverticulitis Narrative: Bonita Chin is a 67 year old female who recently had diverticulitis requiring antibiotics. Her last colonoscopy was about 7 years ago. she does Suffer from chronic constipation Review of Systems Review of Systems: All systems reviewed & are unremarkable except as noted in HPI and below PMFSH Past Medical History Medical History Abnormal thyroid function test Acute sinusitis, unspecified Arthralgia of temporomandibular joint, unspecified side Arthritis BMI 28.0-28.9,adult BMI 29.0-29.9,adult BMI 30.0-30.9,adult Body mass index [BMI] 29.0-29.9, adult (05/04/19) Body mass index [BMI]30.0-30.9, adult (05/01/17) Deep venous thrombosis of right peroneal vein Dietary counseling and surveillance (07/16/18) Diverticulitis of sigmoid colon Elevated blood pressure reading Encounter for follow-up examination after completed treatment for cancer Encounter for gynecological examination (general) (routine) without abnormal findings Encounter for other preprocedural examination Encounter for screening for malignant neoplasm of cervix Encounter for screening for malignant neoplasm of colon (05/01/17) History of cystocele Pelvic relaxation Postmenopausal Surgical History Surgical History Arthritis of left acromioclavicular joint DCE (with rotator cuff repair) October 21, 2022 H/O bladder repair surgery H/O: hysterectomy History of ankle surgery History of appendectomy History of hip surgery History of knee surgery Left rotator cuff tear rotator Cuff Repair October 21, 2022 Family History Family History Father Hypertension Family history of coronary artery disease Family history of congestive heart failure Mother Carcinoma of colon Sibling Acute myocardial infarction Sibling , brain cancer No problems noted. Sibling No problems noted. Other Family history of pancreatic cancer Social History Social History Smoking packs per day: 1 Smoking cigarettes per day: 20.0 Years smoked: 15 Smoking pack-years: 15.00 Smoking status: Former smoker Tobacco type: cigarettes Second hand tobacco smoke exposure: No Smoking end date: 03/15/97 Alcohol intake: current Substance use: never Substance use type: does not use Lack of Transportation: No Lack of Food: Never True Current Housing: I Have Housing Concerned About Future Housing: No Difficulty Paying Gas/Electric Bills: No Difficulty Paying for Meds: No Currently Unemployed: No Education: High School Diploma/GED Difficulty w/ Childcare or Family Care: No Living arrangements: with family Additional living arrangements comments: [facility] Occupation/Education: 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 Gender identity (if verbalized by the patient): Female Spiritual care concerns: No Meds Home Medications and Allergies Home Medications Medication Instructions Recorded Confirmed Type levothyroxine 75 mcg tablet 75 mcg PO DAILY #90 tabs 11/27/22 01/27/23 Rx (Synthroid) linaclotide 145 mcg capsule 145 mcg PO DAILY #90 caps 01/02/23 01/27/23 Rx (Linzess) Allergies Allergy/AdvReac Type Severity Reaction Status Date / Time morphine AdvReac Unknown Nausea and Verified 01/31/23 07:49 Vomiting Exam Const: General: alert Orientation/consciousness: patient oriented x3 Resp: Auscultation: clear to auscultation bilaterally Cardio: Rhythm: regular rhythm GI: GI Palp: Yes Soft
[2023-01-31 07:49] VITALS: BP 132/82; PULSE 79; RESP 20; TEMP 36.2; O2SAT 100
[2023-01-31] MEDS: LACTATED RINGERS 1,000 ML 150 ML IV CONT (07:58)
--- NOTE | 2023-01-31 08:44 | WPDANESEPPF ---
Anes - Initial Pre Proc Eval Procedure: Operation Date: 01/31/23 09:00 Proposed Procedures p Colonoscopy - Bartolome Pittman MD Date/Time: 01/31/23 08:44 Surgeon: Bartolome Pittman MD Pre Op Diagnosis: Diverticulitis Patient Data Age: 67 Gender: F Height: 1.75 m Weight: 87.6 kg Last Vital Signs Temp 97.1 F L 01/31/23 07:49 Pulse 79 01/31/23 07:49 Resp 20 01/31/23 07:49 BP 132/82 01/31/23 07:49 Pulse Ox 100 01/31/23 07:49 O2 Del Method Room Air 01/31/23 07:49 Allergies Allergy/AdvReac Type Severity Reaction Status Date / Time morphine AdvReac Unknown Nausea and Verified 01/31/23 07:49 Vomiting Home Medications Medication Instructions Recorded Confirmed Type levothyroxine 75 mcg tablet 75 mcg PO DAILY #90 tabs 11/27/22 01/27/23 Rx (Synthroid) linaclotide 145 mcg capsule 145 mcg PO DAILY #90 caps 01/02/23 01/27/23 Rx (Linzess) Patient hx anesthesia problems: none Family hx anesthesia problems: none Results Review: All pre-operative results and documents have been reviewed as part of the pre-operative evaluation. [facility] Past Medical History Medical History Abnormal thyroid function test Acute sinusitis, unspecified Arthralgia of temporomandibular joint, unspecified side Arthritis BMI 28.0-28.9,adult BMI 29.0-29.9,adult BMI 30.0-30.9,adult Body mass index [BMI] 29.0-29.9, adult (05/04/19) Body mass index [BMI]30.0-30.9, adult (05/01/17) Deep venous thrombosis of right peroneal vein Dietary counseling and surveillance (07/16/18) Diverticulitis of sigmoid colon Elevated blood pressure reading Encounter for follow-up examination after completed treatment for cancer Encounter for gynecological examination (general) (routine) without abnormal findings Encounter for other preprocedural examination Encounter for screening for malignant neoplasm of cervix Encounter for screening for malignant neoplasm of colon (05/01/17) History of cystocele Pelvic relaxation Postmenopausal Surgical History Surgical History Arthritis of left acromioclavicular joint DCE (with rotator cuff repair) October 21, 2022 H/O bladder repair surgery H/O: hysterectomy History of ankle surgery History of appendectomy History of hip surgery History of knee surgery Left rotator cuff tear rotator Cuff Repair October 21, 2022 Family History Family History Father Hypertension Family history of coronary artery disease Family history of congestive heart failure Mother Carcinoma of colon Sibling Acute myocardial infarction Sibling , brain cancer No problems noted. Sibling No problems noted. Other Family history of pancreatic cancer Social History Social History Smoking packs per day: 1 Smoking cigarettes per day: 20.0 Years smoked: 15 Smoking pack-years: 15.00 Smoking status: Former smoker Tobacco type: cigarettes Second hand tobacco smoke exposure: No Smoking end date: 03/15/97 Alcohol intake: current Substance use: never Substance use type: does not use Lack of Transportation: No Lack of Food: Never True Current Housing: I Have Housing Concerned About Future Housing: No Difficulty Paying Gas/Electric Bills: No Difficulty Paying for Meds: No Currently Unemployed: No Education: High School Diploma/GED Difficulty w/ Childcare or Family Care: No Living arrangements: with family Additional living arrangements comments: [facility] Occupation/Education: 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 Gender identity (if verbalized by the patient): Female Spiritual care concerns: No Anes - Eval Final PreProcedure Day of Procedure 05
[2023-01-31] MEDS: SIMETHICONE ORAL SUSPENSION 20 MG/0.3 ML 30 ML BOTTLE 0.6 ML IRRIGATION (09:05)
[2023-01-31 09:11] VITALS: BP 114/69; PULSE 67; RESP 20; O2SAT 98
[2023-01-31 09:21] VITALS: BP 111/66; PULSE 75; RESP 22; O2SAT 100
[2023-01-31 09:31] VITALS: BP 125/70; PULSE 63; RESP 15; O2SAT 100
== END 2023-01-31 09:40 | disposition home or self-care (01) ==
PROVIDERS: PCP Family Medicine; Visit Provider Internal Medicine Gastroenterology
PROC: 0DJD8ZZ Inspection of Lower Intestinal Tract, Via Natural or Artificial Opening Endoscopic (ICD-10-PCS; CPT 45378; principal; 2023-01-31 09:00)
DX: K57.30 Diverticulosis of large intestine without perforation or abscess without bleeding (principal); Z87.891 Personal history of nicotine dependence
CPT/HCPCS: 45378; J2704; J7120

== ENCOUNTER 2023-02-27 11:23 | Outpatient (CLI) | payer MEDICARE, OTHER, SELFPAY ==
[2023-02-27 16:55] LABS: Basophils Absolute Auto 0.1 K/mm3 (0.0-0.1); Basophils Percent Auto 1.2 % (0.2-1.2); Eosinophils Absolute Auto 0.2 K/mm3 (0-0.3); Eosinophils Percent Auto 2.3 % (0-4.4); Hematocrit 41.1 % (37.0-47.0); Hemoglobin 13.1 g/dL (12.0-15.0); Immature Granulocyte Absolute 0.03 K/mm3 (0.00-0.031); Immature Granulocyte Percent A 0.4 % (0-0.5); Lymphocytes Absolute Auto 1.85 K/mm3 (0.9-3.2); Lymphocytes Percent Auto 22.5 % (18.3-44.2); Mean Corpuscular HGB Conc 31.9 g/dl (32-36); Mean Corpuscular Hemoglobin 27.3 pg (26-34); Mean Corpuscular Volume 85.6 fl (80-100); Mean Platelet Volume 9.4 fl (7.4-10.4); Monocytes Absolute Auto 0.5 K/mm3 (0.1-0.6); Monocytes Percent Auto 6.2 % (2.6-8.5); Neutrophils Absolute Auto 5.5 K/mm3 (1.3-6.7); Neutrophils Percent Auto 67.4 % (45.5-73.1); Platelet Count Result 389 k/mm3 (150-375); Red Cell Distribution Width 14.1 % (11.5-14.5); White Blood Count 8.2 K/mm3 (4.5-10.0)
[2023-02-27 19:33] LABS: Free T4 Free Thyroxine 1.25 ng/mL (0.78-2.19)
[2023-03-03 02:02] LABS: Thyroid Peroxidase Antibodies 658 IU/mL (<9)
[2023-03-03 19:32] LABS: Thyrotropin Receptor Antibody <1.00 IU/L (<=2.00)
[2023-03-04 14:45] LABS: Thyroid Stimulating Immunoglob <89 % baseline (<140)
== END 2023-02-27 11:24 | disposition home or self-care (01) ==
LOC: ANHGOSHLAB 11:28
PROVIDERS: PCP Family Medicine; Referring Provider Physician Assistant Medical; Visit Provider Internal Medicine
DX: R79.89 Other specified abnormal findings of blood chemistry (principal); E03.9 Hypothyroidism, unspecified; R00.2 Palpitations; R06.83 Snoring
CPT/HCPCS: 36415; 83519; 84439; 84443; 84445; 85025; 86376

== ENCOUNTER 2023-03-26 14:06 | Outpatient (CLI) | payer MEDICARE, OTHER, SELFPAY ==
[2023-03-26 14:19] LABS: Basophils Absolute Auto 0.1 K/mm3 (0.0-0.1); Basophils Percent Auto 0.9 % (0.2-1.2); Eosinophils Absolute Auto 0.3 K/mm3 (0-0.3); Eosinophils Percent Auto 2.5 % (0-4.4); Hematocrit 39.9 % (37.0-47.0); Hemoglobin 12.9 g/dL (12.0-15.0); Immature Granulocyte Absolute 0.03 K/mm3 (0.00-0.031); Immature Granulocyte Percent A 0.3 % (0-0.5); Lymphocytes Percent Auto 25.5 % (18.3-44.2); Mean Corpuscular HGB Conc 32.3 g/dl (32-36); Mean Corpuscular Hemoglobin 27.7 pg (26-34); Mean Corpuscular Volume 85.8 fl (80-100); Mean Platelet Volume 8.7 fl (7.4-10.4); Monocytes Absolute Auto 0.7 K/mm3 (0.1-0.6); Monocytes Percent Auto 6.7 % (2.6-8.5); Neutrophils Absolute Auto 6.6 K/mm3 (1.3-6.7); Neutrophils Percent Auto 64.1 % (45.5-73.1); Platelet Count Result 369 k/mm3 (150-375); Red Blood Count 4.65 M/mm3 (4.2-5.4); Red Cell Distribution Width 13.4 % (11.5-14.5); White Blood Count 10.2 K/mm3 (4.5-10.0)
[2023-03-26 16:23] LABS: Alanine Aminotransferase 21 U/L (6-35); Albumin Level 4.6 g/dL (3.5-5.1); Alkaline Phosphatase 80 U/L (38-126); Anion Gap 6 mmol/L (8-16); Aspartate Amino Transferase 24 U/L (14-36); Bilirubin,Total 0.4 mg/dL (0.2-1.3); Blood Urea Nitrogen 17 mg/dL (7-17); CRP 0.9 mg/dL (<1.0); Calcium 9.7 mg/dL (8.4-10.2); Carbon Dioxide 29 mmol/L (22-30); Chloride 102 mmol/L (98-107); Estimated Glomerular Filt Rate > 60; Glucose 87 mg/dL (65-110); Potassium 4.3 mmol/L (3.4-5.0); Sodium 137 mmol/L (137-145)
== END 2023-03-26 14:07 | disposition home or self-care (01) ==
LOC: ANHLAB 14:09
PROVIDERS: PCP Family Medicine; Visit Provider Internal Medicine Hematology & Oncology
DX: D47.3 Essential (hemorrhagic) thrombocythemia (principal)
CPT/HCPCS: 36415; 80053; 82728; 85025; 86140

== ENCOUNTER 2023-04-30 14:38 | Outpatient (CLI) | payer MEDICARE, OTHER, SELFPAY ==
[2023-04-30 20:29] LABS: Free T4 Free Thyroxine 1.29 ng/mL (0.78-2.19)
== END 2023-04-30 14:39 | disposition home or self-care (01) ==
LOC: ANHGOSHLAB 14:41
PROVIDERS: PCP Family Medicine; Visit Provider Internal Medicine
DX: R00.2 Palpitations (principal); E03.9 Hypothyroidism, unspecified
CPT/HCPCS: 36415; 84439; 84443

== ENCOUNTER 2023-08-01 12:51 | Outpatient (CLI) | payer MEDICARE, OTHER, SELFPAY ==
[2023-08-01 14:08] LABS: Free T4 Free Thyroxine 1.07 ng/mL (0.78-2.19)
== END 2023-08-01 12:52 | disposition home or self-care (01) ==
LOC: ANHLAB 12:54
PROVIDERS: PCP Family Medicine; Visit Provider Internal Medicine
DX: R00.2 Palpitations (principal); E03.9 Hypothyroidism, unspecified
CPT/HCPCS: 36415; 84439; 84443

== ENCOUNTER 2023-09-22 15:43 | Outpatient (CLI) | payer MEDICARE, OTHER, SELFPAY ==
--- NOTE | ~2023-09-22 | XR_ITS ---
XR ankle RT min 3V DATE: 09/22/2023 15:57 INDICATION: Effusion TECHNIQUE: 4 views COMPARISON: None FINDINGS: There is mild soft tissue swelling of the ankle, greater laterally. No fracture or dislocation of the ankle or disruption of the ankle mortise is detected. No periosteal reaction or bone destruction. Mild plantar calcaneal enthesopathy. IMPRESSION: Mild soft tissue swelling Plantar calcaneal enthesopathy Reviewed, dictated and finalized at location B. ENING TECH
== END 2023-09-22 15:44 | disposition home or self-care (01) ==
PROVIDERS: PCP Family Medicine; Visit Provider Nurse Practitioner Family
DX: M77.31 Calcaneal spur, right foot (principal); M79.89 Other specified soft tissue disorders
CPT/HCPCS: 73610

== ENCOUNTER 2023-10-22 13:36 | Outpatient (CLI) | payer MEDICARE, OTHER, SELFPAY ==
[2023-10-22 18:21] LABS: Free T4 Free Thyroxine 1.38 ng/mL (0.78-2.19)
== END 2023-10-22 13:37 | disposition home or self-care (01) ==
LOC: ANHGOSHLAB 13:38
PROVIDERS: PCP Family Medicine; Visit Provider Internal Medicine
DX: E03.9 Hypothyroidism, unspecified (principal); R00.2 Palpitations
CPT/HCPCS: 36415; 84439; 84443

== ENCOUNTER 2023-12-17 07:21 | Outpatient (CLI) | payer MEDICARE, OTHER, SELFPAY ==
--- NOTE | ~2023-12-17 | MM_ITS ---
EXAMINATION: MM screening spenser BI w clark HISTORY: Screening TECHNIQUE: Craniocaudal and mediolateral oblique 3-D tomosynthesis images were obtained and synthetic 2-D images were generated. CAD analysis was submitted and interpreted. COMPARISON: Comparison to multiple prior studies sequentially, with oldest reviewed study dated 01/2014. BREAST PARENCHYMAL COMPOSITION: Not Dense: Breast are almost entirely fatty. FINDINGS: Stable left periareolar asymmetry. There is no evidence of suspicious mass, calcification, or architectural distortion to suggest malignancy in either breast. There has been no suspicious inte rval change. IMPRESSION: 1. No mammographic evidence of malignancy. 2. Recommend routine screening mammography in one year. BI-RADS Category 2: Benign finding(s). Reviewed, dictated and finalized at location A.
== END 2023-12-17 07:22 | disposition home or self-care (01) ==
LOC: ANHIMG 07:23
PROVIDERS: PCP Family Medicine; Visit Provider Obstetrics & Gynecology
DX: Z12.31 Encounter for screening mammogram for malignant neoplasm of breast (principal)
CPT/HCPCS: 77063; 77067

== ENCOUNTER 2024-04-26 14:21 | Outpatient (CLI) | payer MEDICARE, OTHER, SELFPAY ==
[2024-04-26 19:27] LABS: Free T4 Free Thyroxine 1.23 ng/mL (0.78-2.19)
== END 2024-04-26 14:22 | disposition home or self-care (01) ==
LOC: ANHGOSHLAB 14:23
PROVIDERS: PCP Family Medicine; Visit Provider Internal Medicine
DX: E03.9 Hypothyroidism, unspecified (principal); R00.2 Palpitations
CPT/HCPCS: 36415; 84439; 84443

== ENCOUNTER 2024-10-23 08:04 | Outpatient (CLI) | payer MEDICARE, OTHER, SELFPAY ==
--- OUTSIDE RECORDS SUMMARY | 2024-10-23 08:07 | XMS_ITS | Continuity of Care Document ---
Author Organization [facility] Address [address] [place] [address] Phone Care Team Providers Care Inverter And Clipper Name Role Phone Unavailable Unavailable Unavailable Procedures Procedure Date Office/outpatient visit,[facility] 2010 Drain/inject major jointor bursa 2010 Kenalog Triamcinolone acetonide inj Office/outpatient visit,[facility] 2010 Office/outpatient visit,[facility] 2010 Ultrasonic guide needle plcmnt S/I Drain/inject major jointor bursa 2010 Kenalog Triamcinolone acetonide inj X-ray exam of hip, 1 view X-ray exam of pelvis, 1-2 views 011 Advance Directives Directive Yes / No Effective Date File Name No Information Encounters Encounter Description Practice Location Reason(s) For Visit Diagnoses Date Provider Providers Copied on Encounter Office/outpa tient visit,[facility] [place] [facility], [address], [place], [place], [id number], [place] tel:[phone] [facility] JOINT PAIN-PELVISENT HESOPATHY OF HIP 1 No Information Office/outpa tient visit,[facility] [place] [facility], [address], [place], [place], [id number], [place] tel:[phone] [facility] JOINT PAIN-PELVISENT HESOPATHY OF HIPSPRAIN HIP & THIGH NEC 1 No Information Office/outpa tient visit,[facility], [facility], [address], [place], [place], [id number], [place] tel:[phone] [facility] JOINT PAIN-PELVISSPR AIN HIP & THIGH NECENTHESOPATH Y OF HIP Nov-0 1 No Information Family History Family Member Type Diagnosis Age At Onset No Information Payers Payer name Insurance type Covered republican ID Authorgrayson mcallister(s) Teresita Justice Cross Blue Shiel d [facility] [id number] [facility] [id number] Social History Type Description Quantity Date Captured [...]
--- OUTSIDE RECORDS SUMMARY | 2024-10-23 08:07 | XMS_ITS | Clinical Summary ---
Author Organization [facility] Address [address] [address] Care Team Providers Care Magnetic Tape Winder Name Role Phone Frankie Garnica MD Primary Care Provider [phone] Allergies Active Allergy Reactions Criticality Noted Date Comments Morphine Nausea and Vomiting Low 12/11/2020 Medications levothyroxine 75 mcg tablet Take 75 mcg by mouth daily. 03/17/2023 Active Linzess 145 mcg capsule Take 145 mcg by mouth daily before breakfast. 01/03/2023 Active Active Problems No known active problems Family History Relation Name Status Comments Brother 1 Brother 2 Daughter 1 Alive Daughter 2 Alive Father Mother Sister 1 Sister 2 Alive Son Alive Social History Tobacco Use Types Packs/Day Years Used Date Smoking Tobacco: Former Cigarettes Smokeless Tobacco: Never Tobacco Cessation:Counseling Given: Not Answered Alcohol Use Standard Drinks/Week Comments Yes 0 (1 standard drink = 0.6 oz pur e alcohol) rare Comments Unknown Sex and Gender Information Value Date Recorded Sex Assigned at Not on file Legal Sex Female 8:01 AM CDT Gender Identity Not on file Sexual Orientation Not on file Last Filed Vital Signs Vital Sign Reading Time Taken Comments Blood Pressure 140/60 05/06/2023 3:50 PM CDT Pulse 79 05/06/2023 3:50 PM CDT Temperature 36.6 C (97.8 F) 05/06/2023 3:50 PM CDT Respiratory Rate 16 05/06/2023 3:50 PM CDT Oxygen Saturation 100% 05/06/2023 3:50 PM CDT Inhaled Oxygen Concentration - - Weight 91.8 kg (202 lb 6.4 oz) 05/06/2023 3:50 P M CDT Height 170.2 cm (5' 7 ) 03/26/2023 1:31 PM CDT Body Mass Index 31.7 03/26/2023 1:31 PM CDT Plan of Treatment Health Maintenance Due Date Last Done Comments DTAP/TDAP/TD VACCINES (1 - Tdap) 1974 BREAST CANCER SCREENING 1995 FIT-DNA Q 3 years 2000 FIT/FOBT Q 1 year 2000 Flex Sig/CT Colonography Q 5 years 2000 PNEUMOCOCCAL VACCINE 65+ YEARS (1 of 1 - PCV) 03/27/20 05 ZOSTER VACCINE (1 of 2) 2005 INFLUENZA VACCINE (#1) 2024 RSV VACCINE (60+ or ) (1 - 1-dose 75+ series) 2030 COLORECTAL SCREENING 01/31/2033 01/31/2023 Colorectal Cancer Screening 01/31/2033 OSTEOPOROSIS SCREENING Completed 12/09/2022 Insurance MEDICARE PART A AND B Care Teams Magnetic Tape Winder Relationship Specialty Start Date End Date Frankie Garnica MD [address] [place] [address] PCP - General Family Practice 12/25/22
--- OUTSIDE RECORDS SUMMARY | 2024-10-23 08:07 | XMS_ITS | Referral Summary ---
Author Organization [facility] [address] Address [address] [place] [address] Care Team Providers Care Wood Pole Treater Name Role Phone Frankie Garnica MD Primary Care Provider Allergies Active Allergy Reactions Criticality Noted Date Comments Morphine Nausea & Vomiting Low 12/11/2020 Medications Euthyrox 50 mcg tablet Take 1 tablet (50 mcg total) by mouth daily 11/29/2020 Active Active Problems Problem Noted Date Diagnosed Date Palpitations 12/11/2020 Premature ventricular contraction 12/11/2020 Premature atrial contractions 12/11/2020 Other specified hypothyroidism 12/11/2020 Social History Tobacco Use Types Packs/Day Years Used Date Smoking Tobacco: Former Cigarettes Q uit: 12/11/1992 Smokeless Tobacco: Never Tobacco Cessation:Counseling Given: Not Answered Personal Safety Answer Date Recorded Getting School Help Needed Not on file 09/27 Comments Unknown Sex and Gender Information Value Date Recorded Sex Assigned at Not on file Legal Sex Female 10:40 AM DAG SPRAYER Gender Identity Not on file Sexual Orientation Not on file Last Filed Vital Signs Vital Sign Reading Time Taken Comments Blood Pressure 138/86 09/29/2023 8:35 AM DAG SPRAYER Pulse 87 09/29/2023 8:35 AM DAG SPRAYER Temperature - - Respiratory Rate - - Oxygen Saturation 98% 09/29/2023 8:35 AM DAG SPRAYER Inhaled Oxygen Concentration - - Weight 97.6 kg (215 lb 1.6 oz) 09/29/2023 8:35 A M DAG SPRAYER Height 175.3 cm (5' 9 ) 09/29/2023 8:35 AM DAG SPRAYER Body Mass Index 31.76 09/29/2023 8:35 AM DAG SPRAYER Plan of Treatment Not on file Insurance MEDICARE FOR LIFE MEDICARE FOR LIFE Care Teams Wood Pole Treater Relationship Specialty Start Date End Date Frankie Garnica MD PCP - General Family Medicine 11/16/20
--- OUTSIDE RECORDS SUMMARY | 2024-10-23 08:07 | XMS_ITS | Clinical Summary ---
Author Organization [facility] [place] [address] Address [address] [place] [address] Care Team Providers Care Rac Specialist Name Role Phone Frankie Garnica MD Primary Care Provider [phone] Allergies Active Allergy Reactions Criticality Noted Date Comments Morphine Nausea & Vomiting Low 12/11/2020 Medications Euthyrox 50 mcg tablet Take 1 tablet (50 mcg total) by mouth daily 11/29/2020 Active Active Problems Problem Noted Date Diagnosed Date Palpitations 12/11/2020 Premature ventricular contraction 12/11/2020 Premature atrial contractions 12/11/2020 Other specified hypothyroidism 12/11/2020 Surgical History Surgery Date Site/Laterality Comments BLADDER REPAIR Medical History Medical History Date Comments Thyroid disease Family History Medical History Relation Name Comments Hypertension Father Colon cancer Mother Relation Name Status Comments Father Mother Social History Tobacco Use Types Packs/Day Years Used Date Smoking Tobacco: Former Cigarettes Q uit: 12/11/1992 Smokeless Tobacco: Never Tobacco Cessation:Counseling Given: Not Answered Personal Safety Answer Date Recorded Getting School Help Needed Not on file 09/27 Comments Unknown Sex and Gender Information Value Date Recorded Sex Assigned at Not on file Legal Sex Female 10:40 AM GENERAL UTILITY WORKER Gender Identity Not on file Sexual Orientation Not on file Obstetrics History Last Filed Vital Signs Vital Sign Reading Time Taken Comments Blood Pressure 138/86 09/29/2023 8:35 AM GENERAL UTILITY WORKER Pulse 87 09/29/2023 8:35 AM GENERAL UTILITY WORKER Temperature - - Respiratory Rate - - Oxygen Saturation 98% 09/29/2023 8:35 AM GENERAL UTILITY WORKER Inhaled Oxygen Concentration - - Weight 97.6 kg (215 lb 1.6 oz) 09/29/2023 8:35 A M GENERAL UTILITY WORKER Height 175.3 cm (5' 9 ) 09/29/2023 8:35 AM GENERAL UTILITY WORKER Body Mass Index 31.76 09/29/2023 8:35 AM GENERAL UTILITY WORKER Plan of Treatment Health Maintenance Due Date Last Done Comments Breast Cancer Screening-Mammogram 1955 Colon Cancer Screening-Colonoscopy 1955 Depression Screening 1955 Fall Risk Assessment 1955 Hepatitis C Screening 1955 Osteoporosis Screening-Bone Density Scan 1955 DTaP/Tdap/Td Vaccine (1 - Tdap) 1966 Hepatitis B Screening 1973 Zoster Vaccine (1 of 2) 2005 Pneumococcal vaccine 65+ (1 of 1 - PCV) 2020 Well Visit 65+ 2020 Influenza Vaccine (#1) 2024 Insurance MEDICARE FOR LIFE ([address] [address] MEDICARE FOR LIFE Care Teams Rac Specialist Relationship Specialty Start Date End Date Frankie Garnica MD PCP - General Family Medicine 11/16/20
[2024-10-23 09:02] LABS: Alanine Aminotransferase 20 U/L (6-35); Albumin Level 4.3 g/dL (3.5-5.1); Alkaline Phosphatase 90 U/L (38-126); Anion Gap 9 mmol/L (4-12); Aspartate Amino Transferase 23 U/L (14-36); Bilirubin,Total 0.6 mg/dL (0.2-1.3); Blood Urea Nitrogen 17 mg/dL (7-17); Calcium 9.6 mg/dL (8.4-10.2); Carbon Dioxide 25 mmol/L (22-30); Chloride 104 mmol/L (98-107); Cholesterol 225 mg/dL (0-200); Creatine Kinase 54 U/L (30-135); Estimated Glomerular Filt Rate > 60; Glucose 91 mg/dL (65-110); HDL Direct 51 mg/dL; Magnesium 2.1 mg/dL (1.6-2.3); Potassium 4.3 mmol/L (3.4-5.0); Sodium 138 mmol/L (137-145); Triglycerides 148 mg/dL (<150)
[2024-10-23 09:13] LABS: LDL Cholesterol Direct 138 mg/dL
[2024-10-23 09:20] LABS: Basophils Absolute Auto 0.1 K/mm3 (0.0-0.1); Basophils Percent Auto 0.9 % (0.2-1.2); Eosinophils Absolute Auto 0.2 K/mm3 (0-0.3); Eosinophils Percent Auto 2.7 % (0-4.4); Hematocrit 39.9 % (37.0-47.0); Immature Granulocyte Absolute 0.04 K/mm3 (0.00-0.031); Immature Granulocyte Percent A 0.5 % (0-0.5); Lymphocytes Absolute Auto 1.87 K/mm3 (0.9-3.2); Lymphocytes Percent Auto 21.8 % (18.3-44.2); Mean Corpuscular HGB Conc 32.6 g/dl (32-36); Mean Corpuscular Hemoglobin 27.5 pg (26-34); Mean Corpuscular Volume 84.4 fl (80-100); Mean Platelet Volume 9.2 fl (7.4-10.4); Monocytes Absolute Auto 0.6 K/mm3 (0.1-0.6); Monocytes Percent Auto 6.5 % (2.6-8.5); Neutrophils Absolute Auto 5.8 K/mm3 (1.3-6.7); Neutrophils Percent Auto 67.6 % (45.5-73.1); Platelet Count Result 388 k/mm3 (150-375); Red Blood Count 4.73 M/mm3 (4.2-5.4); Red Cell Distribution Width 13.3 % (11.5-14.5); White Blood Count 8.6 K/mm3 (4.5-10.0)
[2024-10-23 09:32] LABS: Free T4 Free Thyroxine 1.19 ng/dL (0.78-2.19)
[2024-10-23 09:33] LABS: Vitamin D 25 Hydroxy 24.8 ng/mL
== END 2024-10-23 08:05 | disposition home or self-care (01) ==
PROVIDERS: PCP Family Medicine; Referring Provider Internal Medicine
DX: R20.2 Paresthesia of skin (principal); E66.9 Obesity, unspecified; M79.18 Myalgia, other site; G51.4 Facial myokymia; R25.2 Cramp and spasm; M79.10 Myalgia, unspecified site; E55.9 Vitamin D deficiency, unspecified; R00.2 Palpitations; E03.9 Hypothyroidism, unspecified; R79.89 Other specified abnormal findings of blood chemistry; Z13.220 Encounter for screening for lipoid disorders; Z13.0 Encounter for screening for diseases of the blood and blood-forming organs and certain disorders involving the immune mechanism; Z13.1 Encounter for screening for diabetes mellitus
CPT/HCPCS: 36415; 80053; 80061; 82306; 82550; 82607; 82746; 83735; 84439; 84443; 85025

== ENCOUNTER 2025-05-14 12:10 | Emergency (ER) | payer MEDICARE, OTHER, SELFPAY ==
--- OUTSIDE RECORDS SUMMARY | 2011-02-20 10:15 | XMS_ITS | Continuity of Care Document ---
Author Organization [facility] Address [address] [place] [address] Phone Care Team Providers Care Manager Summer Name Role Phone Unavailable Unavailable Unavailable Procedures Procedure Date Office/outpatient visit[facility] [place] 2010 Drain/inject major jointor bursa 2010 Kenalog Triamcinolone acetonide inj Office/outpatient visit[place] [place] 2010 Office/outpatient visit,[facility] 2010 Ultrasonic guide needle plcmnt S/I Drain/inject major jointor bursa 2010 Kenalog Triamcinolone acetonide inj X-ray exam of hip, 1 view X-ray exam of pelvis, 1-2 views 011 Advance Directives Directive Yes / No Effective Date File Name No Information Encounters Encounter Description Practice Location Reason(s) For Visit Diagnoses Date Provider Providers Copied on Encounter Office/outpa tient visit,[facility], [facility], [address], [place], [place], [id number], [place] tel:[phone] [place] JOINT PAIN-PELVISENT HESOPATHY OF HIP 1 No Information Office/outpa tient visit,[facility], [facility], [address], [place], [place], [id number], [place] tel:[phone] [place] JOINT PAIN-PELVISENT HESOPATHY OF HIPSPRAIN HIP & THIGH NEC 1 No Information Office/outpa tient visit,new, [facility], [address], [place], [place], [id number], [place] tel:[phone] [facility] JOINT PAIN-PELVISSPR AIN HIP & THIGH NECENTHESOPATH Y OF HIP Nov-0 1 No Information Family History Family Member Type Diagnosis Age At Onset No Information Payers Payer name Insurance type Covered libertarian ID Authorgrayson mcallister(s) [employer] [place] [employer] Shiel d [facility] [id number] [facility] [id number] Social History Type Description Quantity Date Captured Comments Sex Female Smoking Status No Information Chief Complaint And Reason For Visit No Information Reason For Referral Reason For Referral No Information History Of Present Illness Encounter Date Complaint History Of Prese nt Illness No Information Functional Status Date Functional Assessmen t No Information Instructions Date Instruction Additional Infor mation No Information Assessments Type Assessment Date No Information Patient Care Teams Name Effective Dates (start - stop) Status Members No Information
--- NOTE | ~2025-05-14 | CT_ITS ---
EXAMINATION: CT abdomen pelvis w con, 05/14/2025 13:10 CDT HISTORY: hsx of diverticulitis, suprapubic + LLQ pain COMPARISON: No comparisons available. TECHNIQUE: CT scan of the abdomen and pelvis was performed with contrast. Isovue 300, 92cc injected IV. One or more of the following dose reduction techniques were used: automated exposure control, adjustment of the mA and/or kV according to patient size, use of iterative reconstruction technique. Unless otherwise stated, incidental findings do not require dedicated follow up imaging FINDINGS: CT abdomen: LUNG BASES: The lung bases are clear. The visualized portions of the heart and pericardium are unremarkable. LIVER: No intrahepatic biliary duct dilatation. The main portal vein is patent. SPLEEN: Unremarkable, no splenomegaly. KIDNEYS: Right Kidney: Right kidney mild hydronephrosis however there is no hydroureteral no renal calculi. Left Kidney: Left kidney mild hydronephrosis, no hydroureteronephrosis, no renal calculi identified. ADRENAL GLANDS: Unremarkable. PANCREAS: Unremarkable. GALLBLADDER/BILIARY: Post cholecystectomy. STOMACH AND ESOPHAGUS: Visualized stomach and esophagus within normal limits. BOWEL/MESENTERY: There is thickening of the sigmoid colon consistent with acute diverticulitis, no perforation or abscess. Moderate fecal content throughout the remaining large bowel. Appendix is normal. No stranding otherwise within the mesentery. There are no dilated loops of small bowel appreciated. ADENOPATHY/RETROPERITONEUM: No lymphadenopathy. AORTA/VASCULATURE: Normal caliber aorta. FREE FLUID OR FREE AIR: No free fluid.. CT pelvis: SOLID ORGANS/REPRODUCTIVE: Status post hysterectomy. No adnexal mass. BLADDER: Within normal limits. OSSEOUS STRUCTURES: No acute osseous abnormality.No suspicious lesions. OVERLYING SOFT TISSUES: There is a fat-containing supraumbilical ventral hernia, defect in the abdominal wall 0.5 cm. IMPRESSION: 1. Acute diverticulitis. No perforation or abscess 2. Bilateral probable UPJ obstruction. Reviewed, dictated and finalized at location A.
--- OUTSIDE RECORDS SUMMARY | 2025-05-14 12:13 | XMS_ITS | Clinical Summary ---
Author Organization [facility] Address [address] [place] [address] Care Team Providers Care Paper Cutting Machine Operator Name Role Phone Frankie Garnica MD Primary [...] P M CDT Height 170.2 cm (5' 7) 03/26/2023 1:31 PM CDT Body Mass Index 31.7 03/26/2023 1:31 PM CDT Plan of Treatment Health Maintenance Due Date Last Done Comments DTAP/TDAP/TD VACCINES (1 - Tdap) 1974 FIT-DNA Q 3 years 2000 FIT/FOBT Q 1 year 2000 Flex Sig/CT Colonography Q 5 years 2000 PNEUMOCOCCAL VACCINE 50+ YEA RS (1 of 1 - PCV) 2005 ZOSTER VACCINE (1 of 2) 2005 BREAST CANCER SCREENING 12/10/2023 12/09/2022, 12/09 INFLUENZA VACCINE (#1) 2025 OSTEOPOROSIS SCREENING 12/10/2027 12/09/2022 RSV VACCINE (60+ or ) (1 - 1-dose 75+ series) 2030 COLORECTAL SCREENING 01/31/2033 01/31/2023 Colorectal Cancer Screening 01/31/2033 Insurance MEDICARE PART A AND B Care Teams Paper Cutting Machine Operator Relationship Specialty Start Date End Date rFankie Garnica MD [address] [place] [address] PCP - General Family Practice 12/25/22
--- OUTSIDE RECORDS SUMMARY | 2025-05-14 12:13 | XMS_ITS | Encounter Summary ---
Author Organization [facility] Address [address] [place] [address] Phone Care Team Providers Care Tool Procurement Coordinator Name Role Phone Frankie Garnica MD Primary Care Provider Encounter Details Date Type Department Care Team (Late st Contact Info) Description 05/06/2025 Telephone [facility] Medicine Oncology [facility] Floor 5 [place] [address] Susan Roblero Social History Tobacco Use Types Packs/Day Years Used Date Smoking Tobacco: Former Cigarettes Q uit: 12/11/1992 Smokeless Tobacco: Never Comments Unknown Sex and Gender Information Value Date Recorded Sex Assigned at Not on file Legal Sex Female 10:40 AM ELECTROLYSIS INVESTIGATOR Gender Identity Not on file Sexual Orientation Not on file documented as of this encounter Plan of Treatment Not on file documented as of this encounter Visit Diagnoses Not on filedocumented in this encounter Care Teams Tool Procurement Coordinator Relationship Specialty Start Date End Date Frankie Garnica MD PCP - General Family Medicine 11/16/20 documented as of this encounter
--- OUTSIDE RECORDS SUMMARY | 2025-05-14 12:13 | XMS_ITS | Clinical Summary ---
Author Organization [facility] [place] [address] Address [address] [place] [address] Care Team Providers Care Acoustical Material Worker Name Role Phone Frankie Garnica MD Primary Care Provider Allergies Active Allergy Reactions Criticality Noted Date Comments Morphine Nausea & Vomiting Low 12/11/2020 Medications Euthyrox 50 mcg tablet Take 1 tablet (50 mcg total) by mouth daily 11/29/2020 Active linaCLOtide (Linzess) 72 mcg capsule 12/15/2023 Active levothyroxine (SYNTHROID) 75 mcg tablet 09/03/2024 Active Active Problems Problem Noted Date Diagnosed Date Palpitations 12/11/2020 Premature ventricular contraction 12/11/2020 Premature atrial contractions 12/11/2020 Other specified hypothyroidism 12/11/2020 Encounters Date Type Department Care Team Description 05/06/2025 Telephone [facility] Medicine Oncology [facility] Floor 5 [place] [address] Susan Roblero from Last 3 Months Surgical History Surgery Date Site/Laterality Comments BLADDER REPAIR Medical History Medical History Date Comments Thyroid disease Family History Medical History Relation Name Comments Hypertension Father Colon cancer Mother Relation Name Status Comments Father Mother Social History Tobacco Use Types Packs/Day Years Used Date Smoking Tobacco: Former Cigarettes Q uit: 12/11/1992 Smokeless Tobacco: Never Tobacco Cessation:Counseling Given: Not Answered Comments Unknown Sex and Gender Information Value Date Recorded Sex Assigned at Not on file Legal Sex Female 10:40 AM REPORTING PROCESS CONSULTANT Gender Identity Not on file Sexual Orientation Not on file Obstetrics History Last Filed Vital Signs Vital Sign Reading Time Taken Comments Blood Pressure 138/84 11/05/2024 9:21 AM REPORTING PROCESS CONSULTANT Pulse 76 11/05/2024 9:21 AM REPORTING PROCESS CONSULTANT Temperature - - Respiratory Rate 14 11/05/2024 9:21 AM REPORTING PROCESS CONSULTANT Oxygen Saturation 97% 11/05/2024 9:21 AM REPORTING PROCESS CONSULTANT Inhaled Oxygen Concentration - - Weight 95.3 kg (210 lb) 11/05/2024 9:21 AM REPORTING PROCESS CONSULTANT Height 175.3 cm (5' 9) 11/05/2024 9:21 AM REPORTING PROCESS CONSULTANT Body Mass Index 31.01 11/05/2024 9:21 AM REPORTING PROCESS CONSULTANT Plan of Treatment Health Maintenance Due Date Last Done Comments Breast Cancer Screening-Mammogram 1955 Colon Cancer Screening-Colonoscopy 1955 Depression Screening 1955 Fall Risk Assessment 1955 Hepatitis C Screening 1955 Osteoporosis Screening-Bone Density Scan 1955 DTaP/Tdap/Td Vaccine (1 - Tdap) 1966 Hepatitis B Screening 1973 Pneumococcal vaccine 65+ (1 of 1 - PCV) 2005 Zoster Vaccine (1 of 2) 2005 Well Visit 65+ 2020 Influenza Vaccine (#1) 2025 Insurance MEDICARE [employer] MEDICARE FOR LIFE MEDICARE FOR LIFE Care Teams Acoustical Material Worker Relationship Specialty Start Date End Date Frankie Garnica MD PCP - General Family Medicine 11/16/20
[2025-05-14 12:15] VITALS: BP 173/87; PULSE 99; RESP 18; TEMP 36.7; O2SAT 99
[2025-05-14 12:40] LABS: Hematocrit 41.9 % (37.0-47.0); Hemoglobin 13.2 g/dL (12.0-15.0); Immature Granulocyte Percent A 0.4 % (0-0.5); Lymphocytes Absolute Auto 2.14 K/mm3 (0.9-3.2); Mean Corpuscular HGB Conc 31.5 g/dl (32-36); Mean Corpuscular Hemoglobin 26.7 pg (26-34); Mean Corpuscular Volume 84.8 fl (80-100); Nucleated Red Blood Cells Absolute Auto 0.000 K/mm3 (0.0-0.012); Nucleated Red Blood Cells Perc 0.0 % (0.0-0.2); Platelet Count Result 424 k/mm3 (150-375); Red Blood Count 4.94 M/mm3 (4.2-5.4); White Blood Count 17.8 K/mm3 (4.5-10.0)
[2025-05-14 12:46] LABS: Add Urine Microscopic? YES; Appearance Urine Clear (Clear); Glucose Urine UA Negative (Negative); Leukocyte Esterase Ur Trace LEU/UL (Negative); Nitrate Urine Negative (Negative); Non Pathogenic Casts 0-2; Specific Grav Ur 1.012 (1.001-1.035)
[2025-05-14 12:51] LABS: INR 1.1; Prothrombin Time 14.1 Seconds (11.1-14.7)
[2025-05-14 12:52] LABS: Partial Thromboplastin Time 30.2 Seconds (22.3-36.8)
[2025-05-14 12:59] LABS: Alanine Aminotransferase 20 U/L (6-35); Albumin Level 4.4 g/dL (3.5-5.1); Alkaline Phosphatase 107 U/L (38-126); Anion Gap 10 mmol/L (4-12); Aspartate Amino Transferase 30 U/L (14-36); Bilirubin,Total 1.0 mg/dL (0.2-1.3); Blood Urea Nitrogen 10 mg/dL (7-17); Calcium 9.7 mg/dL (8.4-10.2); Carbon Dioxide 26 mmol/L (22-30); Chloride 98 mmol/L (98-107); Estimated CRCL calculation 59 ml/min; Estimated Glomerular Filt Rate 59; Glucose 96 mg/dL (65-110); Lipase 85 U/L (23-300); Potassium 4.1 mmol/L (3.4-5.0); Sodium 134 mmol/L (137-145); Total Protein 7.9 g/dL (6.3-8.2)
--- NOTE | 2025-05-14 13:00 | ED_ITS ---
HPI - General Adult General Chief complaint: Abdominal Pain Stated complaint: Diverticulitis Time Seen by Provider: 05/14/25 12:17 History of Present Illness HPI narrative: 70-year-old female presented to the emergency department for evaluation for suprapubic abdominal pain that radiates to left lower quadrant. Patient feels his symptoms are similar to her previous episodes of diverticulitis. Patient reports that the symptoms started this morning approximately 3:00 a.m.. Patient denies any associated nausea vomiting or change in bowel habits. Related Data Allergies Allergy/AdvReac Type Severity Reaction Status Date / Time morphine AdvReac Unknown Nausea and Verified 05/10/25 08:53 Vomiting Review of Systems 2 Review of Systems: All systems reviewed & are unremarkable except as noted in HPI and below PMFSH Past Medical History Medical History BMI 33.0-33.9,adult BMI 31.0-31.9,adult HANY (obstructive sleep apnea) Diverticulitis of sigmoid colon Chronic constipation Hypothyroidism Apneic episode Thyroiditis Post-menopausal History of cystocele Acute cervical myofascial strain Osteopenia Leg cramping Abnormal thyroid function test Acute sinusitis, unspecified Arthralgia of temporomandibular joint, unspecified side Body mass index [BMI]30.0-30.9, adult (05/01/17) Elevated blood pressure reading Pelvic relaxation Deep venous thrombosis of right peroneal vein Postmenopausal Arthritis Warts Surgical History Surgical History Arthritis of left acromioclavicular joint DCE (with rotator cuff repair) October 21, 2022 Left rotator cuff tear rotator Cuff Repair October 21, 2022 History of ankle surgery History of hip surgery History of knee surgery H/O: hysterectomy History of appendectomy H/O bladder repair surgery Family History Family History Father Hypertension Family history of coronary artery disease Family history of congestive heart failure Mother Carcinoma of colon Sibling Acute myocardial infarction Sibling , brain cancer No problems noted. Sibling No problems noted. Other Family history of pancreatic cancer Social History Social History Smoking packs per day: 1 Smoking cigarettes per day: 20.0 Years smoked: 15 Smoking pack-years: 15.00 Smoking status: Former smoker Tobacco type: cigarettes Second hand tobacco smoke exposure: No Smoking end date: 03/15/97 Alcohol intake: current Alcohol use details: rarely Substance use: never Substance use type: does not use Do You Feel Safe in your Home?: Yes Lack of Transportation: No Lack of Food: Never True Current Housing: I Have Housing Concerned About Future Housing: No Difficulty Paying Gas/Electric Bills: No Difficulty Paying for Meds: No Currently Unemployed: No Education: High School Diploma/GED Difficulty w/ Childcare or Family Care: No Living arrangements: with family Additional living arrangements comments: [facility] Occupation/Education: retired 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 Gender identity (if verbalized by the patient): Female Spiritual care concerns: No Exam 2 Narrative: APPEARANCE: Well appearing, no pain, no distress, well-nourished. HEAD: normocephalic, atraumatic. EYES: PERRLA/EOMI, conjunctivae clear. NOSE: Normal no drainage EARS:TMS clear with good light reflex. THROAT: Pharynx clear, no exudate. NECK: Supple. No adenopathy, no masses. RESPIRATORY: Airway patent, respirations nonlabored. Clear to auscultation bilaterally, no rales, rhonchi, wheezing. CARDIOVASCULAR: Regular rate and rhythm without murmurs rubs or gallops. ABDOMINAL: Lower abdominal tenderness to palpation MUSCULOSKELETAL: Moves all extremities. Strength/ROM intact, No edema, No calf tenderness. NEURO: Alert. Cranial nerves II through XII intact. Good gait. Good coordination SKIN: Warm, dry. Normal Color Course Vital Signs Vital signs: Vital Signs Temperature 98.0 F 05/14/25 12:15 Pulse Rate 99 05/14/25 12:15 Respiratory Rate 18 05/14/25 12:15 Blood Pressure 173/87 H 05/14/25 12:15 Pulse Oximetry 99 05/14/25 12:15 Oxygen Delivery Room Air 05/14/25 12:15 Temperature 98.0 F 05/14/25 12:15 Pulse Rate 91 05/14/25 14:49 Respiratory Rate 12 05/14/25 14:49 Blood Pressure 146/75 H 05/14/25 14:49 Pulse Oximetry 99 05/14/25 14:49 Oxygen Delivery Room Air 05/14/25 12:15 Medical Decision Making [facility] Narrative Medical decision making narrative: 70-year-old female presents emergency department for evaluation for lower abdominal pain. Patient is afebrile but does have a leukocytosis 17.8 hemoglobin 13.2. Patient has an INR 1.1 with no acute abnormalities on her CMP UA was negative for infection. CT scan showed evidence of acute diverticulitis with no abscess or perforation. With the elevated leukocytosis I did discuss admission with the patient but she strongly prefers to be discharged home. Patient is nontoxic appearing. Patient was started on Cipro and Flagyl in the emergency department. Patient was encouraged close follow-up with GI. Patient was discharged home with medications patient was educated on reasons to return to the emergency department. All questions concerns were addressed. Patient denies any flank pain. Patient's creatinine is at its baseline and patient has no hematuria. Differential Diagnosis Differential Diagnosis: Colitis, diverticulitis, ureteral calculi, UTI Vital Signs Vital Signs: Vital Signs Temperature 98.0 F 05/14/25 12:15 Pulse Rate 99 05/14/25 12:15 Respiratory Rate 18 05/14/25 12:15 Blood Pressure 173/87 H 05/14/25 12:15 Pulse Oximetry 99 05/14/25 12:15 Oxygen Delivery Room Air 05/14/25 12:15 Temperature 98.0 F 05/14/25 12:15 Pulse Rate 91 05/14/25 14:49 Respiratory Rate 12 05/14/25 14:49 Blood Pressure 146/75 H 05/14/25 14:49 Pulse Oximetry 99 05/14/25 14:49 Oxygen Delivery Room Air 05/14/25 12:15 Lab Data Lab results reviewed: Yes I reviewed the patient's lab results. 05/14/25 12:30 05/14/25 12:30 Labs: Lab Results 05/14/25 05/14/25 Range/Units 12:30 12:32 WBC 17.8 H (4.5-10.0) K/mm3 RBC 4.94 (4.2-5.4) M/mm3 Hgb 13.2 (12.0-15.0) g/dL Hct 41.9 (37.0-47.0) % MCV 84.8 (80-100) fl MCH 26.7 (26-34) pg MCHC 31.5 L (32-36) g/dl RDW 13.2 (11.5-14.5) % Plt Count 424 H (150-375) k/mm3 MPV 8.8 (7.4-10.4) fl Immature Gran % (Auto) 0.4 (0-0.5) % Neut % (Auto) 79.0 H (45.5-73.1) % Lymph % (Auto) 12.0 L (18.3-44.2) % [place] % (Auto) 7.1 (2.6-8.5) % Eos % (Auto) 0.9 (0-4.4) % Baso % (Auto) 0.6 (0.2-1.2) % Lymph # (Auto) 2.14 (0.9-3.2) K/mm3 [place] # (Auto) 1.3 H (0.1-0.6) K/mm3 Eos # (Auto) 0.2 (0-0.3) K/mm3 Baso # (Auto) 0.1 (0.0-0.1) K/mm3 Abs Immat Gran (auto) 0.08 H (0.00-0.031) K/mm3 Absolute Neuts (auto) 14.1 H (1.3-6.7) K/mm3 Absolute Nucleated RBC 0.000 (0.0-0.012) K/mm3 Nucleated RBC % 0.0 (0.0-0.2) % PT 14.1 (11.1-14.7) Seconds INR 1.1 APTT 30.2 (22.3-36.8) Seconds Sodium 134 L (137-145) mmol/L Potassium 4.1 (3.4-5.0) mmol/L Chloride 98 (98-107) mmol/L Carbon Dioxide 26 (22-30) mmol/L Anion Gap 10 (4-12) mmol/L BUN 10 D (7-17) mg/dL Creatinine 0.94 (0.7-1.0) mg/dL Estim Creat Clear Calc 59 ml/min Estimated GFR 59 (59 - ) Glucose 96 (65-110) mg/dL Lactic Acid 1.0 (0.7-2.0) mmol/L Calcium 9.7 (8.4-10.2) mg/dL Total Bilirubin 1.0 (0.2-1.3) mg/dL AST 30 (14-36) U/L ALT 20 (6-35) U/L Alkaline Phosphatase 107 (38-126) U/L Total Protein 7.9 (6.3-8.2) g/dL Albumin 4.4 (3.5-5.1) g/dL Lipase 85 (23-300) U/L Urine Color Yellow (Yellow) Urine Appearance Clear (Clear) Urine pH 5.5 (5.0-9.0) Ur Specific [place] 1.012 (1.001-1.035) Urine Protein Negative (Negative) mg/dL Urine Glucose (UA) Negative (Negative) mg/dL Urine Ketones Negative (Negative) mg/dL Ur Blood (Man) Trace (Negative) Urine Nitrate Negative (Negative) Urine Bilirubin Negative (Negative) Urine Urobilinogen 0.2 (<2.0) mg/dL Leukocyte Esterase Rfl Trace H (Negative) ROSETTE/UL Urine RBC 0-2 (0-2) /hpf Urine WBC 0-5 (0-3) /hpf Ur Squamous Epith Cells None seen (Few) /hpf Urine Bacteria None seen /hpf Urine Casts 0-2 Imaging Data Radiologist's impression: Impressions Abdomen/Pelvis CT 05/14/25 15:34 IMPRESSION: 1. Acute diverticulitis. No perforation or abscess 2. Bilateral probable UPJ obstruction. Discharge Plan Discharge Clinical Impression: Diverticulitis Patient Disposition: Home Condition: Stable Instructions: Antibiotic Form, Diverticulitis (DC) Additional Instructions: Antibiotic as directed until completed. Have close follow-up with GI. If you have any worsening symptoms then please call or return to the emergency department. Patient Language: Algerian Prescriptions: New metronidazole 500 mg tablet 500 mg PO Q12H 7 Days Qty: 14 0RF ciprofloxacin HCl [Cipro] 500 mg tablet 500 mg PO Q12H 7 Days Qty: 14 0RF No Action levothyroxine 75 mcg tablet See Rx Instructions .ROUTE .COMPLEX Qty: 120 3RF Dose Instruction: TAKE 1 TABLET DAILY Rx Instructions: 75 mcg daily and take 2 pills on Friday omeprazole 20 mg capsule,delayed release(DR/EC) 20 mg PO DAILY 90 Days Qty: 90 3RF Linzess 72 mcg capsule See Rx Instructions .ROUTE .COMPLEX Qty: 90 3RF Dose Instruction: TAKE 1 CAPSULE EVERY MORNING Rx Instructions: TAKE 1 CAPSULE EVERY MORNING Follow-up/Referrals: Celso Maurice MD [Physician, Gastroenterology] Frankie Garnica MD [Primary Care Provider, Family Practice]
[2025-05-14] MEDS: LACTATED RINGERS 1,000 ML 999 ML IV CONT (13:01)
[2025-05-14 14:49] VITALS: BP 146/75; PULSE 91; RESP 12; O2SAT 99
[2025-05-14] MEDS: CIPROFLOXACIN 500 MG TAB PO (16:24)
== END 2025-05-14 16:31 | disposition home or self-care (01) ==
PROVIDERS: Emergency Provider Emergency Medicine; PCP Family Medicine
DX: K57.32 Diverticulitis of large intestine without perforation or abscess without bleeding (principal); E03.9 Hypothyroidism, unspecified; G47.33 Obstructive sleep apnea (adult) (pediatric); M85.80 Other specified disorders of bone density and structure, unspecified site; M19.012 Primary osteoarthritis, left shoulder; K59.09 Other constipation; Z86.718 Personal history of other venous thrombosis and embolism; Z87.891 Personal history of nicotine dependence; Z90.710 Acquired absence of both cervix and uterus; R93.41 Abnormal radiologic findings on diagnostic imaging of renal pelvis, ureter, or bladder
CPT/HCPCS: 36415; 74177; 80053; 81001; 83605; 83690; 85025; 85610; 85730; 96360; 99284; A9270; J7120; Q9967

== ENCOUNTER 2025-05-24 09:34 | Outpatient (CLI) | payer MEDICARE, OTHER, SELFPAY ==
--- OUTSIDE RECORDS SUMMARY | 2025-05-24 10:41 | XMS_ITS | Clinical Summary ---
Author Organization [facility] [place] [address] Address [address] [place] [address] Care Team Providers Care Santa'S Helper Name Role Phone Frankie Garnica MD Primary [...] Encounters Date Type Department Care Team Description 05/20/2025 Orders Only [facility] Medicine Pathology Outreach [address] [place] [address] Juve Simon MD Melanoma of lower limb, left (HCC) 05/19/2025 11:45 AM CDT Office Visit [facility] Medicine Dermatology [address] [facility] [address] [place] [address] Juve Simon MD Melanoma of lower limb, left (HCC) (Primary Dx) 05/06/2025 Telephone [facility] Medicine Oncology [address] [facility] [address] [place] [address] Susan Roblero from Last 3 [...] on file Legal Sex Female 10:40 AM GROUP FITNESS INSTRUCTOR Gender Identity Not on file Sexual Orientation Not on file Obstetrics History Last Filed Vital Signs Vital Sign Reading Time Taken Comments Blood Pressure 138/84 11/05/2024 9:21 AM GROUP FITNESS INSTRUCTOR Pulse 76 11/05/2024 9:21 AM GROUP FITNESS INSTRUCTOR Temperature - - Respiratory Rate 14 11/05/2024 9:21 AM GROUP FITNESS INSTRUCTOR Oxygen Saturation 97% 11/05/2024 9:21 AM GROUP FITNESS INSTRUCTOR Inhaled Oxygen Concentration - - Weight 95.3 kg (210 lb) 11/05/2024 9:21 AM GROUP FITNESS INSTRUCTOR Height 175.3 cm (5' 9) 11/05/2024 9:21 AM GROUP FITNESS INSTRUCTOR Body Mass Index 31.01 11/05/2024 9:21 AM GROUP FITNESS INSTRUCTOR Plan of Treatment Health Maintenance Due Date [...] Visit 65+ 2020 Influenza Vaccine (#1) 2025 06/25/2024 Insurance MEDICARE FOR LIFE MEDICARE FOR LIFE MEDICARE FOR LIFE Care Teams Santa'S Helper Relationship Specialty Start Date End Date Frankie Garnica MD PCP - General Family Medicine 11/16/20
--- OUTSIDE RECORDS SUMMARY | 2025-05-24 10:41 | XMS_ITS | Encounter Summary ---
Author Organization [facility] Address [address] [place] [address] Phone Care Team Providers Care Cheese Wrapper Name Role Phone Frankie Garnica MD Primary Care Provider [phone] Encounter Details Date Type Department Care Team (Late st Contact Info) Description 05/06/2025 Telephone [facility] Medicine Oncology [facility] Floor 5 [place] [address] Susan Roblero Social History Tobacco Use Types Packs/Day Years Used Date Smoking Tobacco: Former Cigarettes Q uit: 12/11/1992 Smokeless Tobacco: Never Comments Unknown Sex and Gender Information Value Date Recorded Sex Assigned at Not on file Legal Sex Female 10:40 AM AIR TRAFFIC CONTROL SPECIALIST CENTER Gender Identity Not on file Sexual Orientation Not on file documented as of this encounter Plan of Treatment Not on file documented as of this encounter Visit Diagnoses Not on filedocumented in this encounter Care Teams Cheese Wrapper Relationship Specialty Start Date End Date Frankie Garnica MD PCP - General Family Medicine 11/16/20 documented as of this encounter
--- OUTSIDE RECORDS SUMMARY | 2025-05-24 10:41 | XMS_ITS | Encounter Summary ---
Author Organization [facility] Address [address] [place] [address] Phone Care Team Providers Care Machine Filler Shredder Name Role Phone Frankie Garnica MD Primary Care Provider [phone] Encounter Details Date Type Department Care Team (Late st Contact Info) Description 05/20/2025 Orders Only [facility] Medicine Pathology Outreach [address] [place] [address] Juve Simon MD [address] [place] [address] Melanoma of lower limb, left (HCC) Social History Tobacco Use Types Packs/Day Years Used Date Smoking Tobacco: Former Cigarettes Q uit: 12/11/1992 Smokeless Tobacco: Never Comments Unknown Sex and Gender Information Value Date Recorded Sex Assigned at Not on file Legal Sex Female 10:40 AM AUDIO VISUAL PROJECT MANAGER Gender Identity Not on file Sexual Orientation Not on file documented as of this encounter Plan of Treatment Pending Results Name Type Priority Associated Diagnoses Date /Time Surgical pathology Pathology and Cytology Routine Melanoma of lower limb, left (HCC) 05/19/2025 12:00 AM CDT documented as of this encounter Visit Diagnoses Diagnosis Melanoma of lower limb, left (HCC) documented in this encounter Care Teams Machine Filler Shredder Relationship Specialty Start Date End Date Frankie Garnica MD PCP - General Family Medicine 11/16/20 documented as of this encounter
--- OUTSIDE RECORDS SUMMARY | 2025-05-24 10:41 | XMS_ITS | Clinical Summary ---
Author Organization [facility] Address [address] [place] [address] Care Team Providers Care Industrial Cook Name Role Phone Frankie Garnica MD Primary [...] MEDICARE PART A AND B Care Teams Industrial Cook Relationship Specialty Start Date End Date Frankie Garnica MD [address] [place] [address] PCP - General Family Practice 12/25/22
[2025-05-24 13:11] LABS: Hematocrit 39.7 % (37.0-47.0); Hemoglobin 12.2 g/dL (12.0-15.0); Immature Granulocyte Percent A 0.7 % (0-0.5); Lymphocytes Absolute Auto 1.56 K/mm3 (0.9-3.2); Mean Corpuscular HGB Conc 30.7 g/dl (32-36); Mean Corpuscular Hemoglobin 26.8 pg (26-34); Mean Corpuscular Volume 87.1 fl (80-100); Nucleated Red Blood Cells Absolute Auto 0.000 K/mm3 (0.0-0.012); Nucleated Red Blood Cells Perc 0.0 % (0.0-0.2); Platelet Count Result 492 k/mm3 (150-375); Red Blood Count 4.56 M/mm3 (4.2-5.4); White Blood Count 9.1 K/mm3 (4.5-10.0)
[2025-05-24 13:31] LABS: Free T4 Free Thyroxine 1.41 ng/dL (0.78-2.19)
[2025-05-24 13:49] LABS: Thyroid Stimulating Hormone 2.020 uIU/mL (0.465-4.680)
== END 2025-05-24 09:35 | disposition home or self-care (01) ==
PROVIDERS: Internal Medicine; PCP Family Medicine; Visit Provider Physician Assistant Medical
DX: R00.2 Palpitations (principal); E66.9 Obesity, unspecified; E03.9 Hypothyroidism, unspecified; Z68.30 Body mass index [BMI] 30.0-30.9, adult; M85.80 Other specified disorders of bone density and structure, unspecified site; E06.9 Thyroiditis, unspecified
CPT/HCPCS: 36415; 84439; 84443; 85025